=== PATIENT | female | born 1980 | race Caucasian/White ===

== ENCOUNTER 2018-12-15 09:30 | Emergency (ER) | payer OTHER, MEDICAID, SELFPAY ==
[2018-12-15 09:49] VITALS: BP 166/94; PULSE 76; RESP 18; TEMP 36.5; O2SAT 100; BMI 31.5
[2018-12-15 09:56] LABS: Appearance Urine UA CLOUDY; Bilirubin Urine UA NEGATIVE (NEGATIVE); Color Urine UA YELLOW; Glucose Urine UA NEGATIVE (Negative); Ketones Urine UA NEGATIVE (NEGATIVE); Leukocyte Esterase Urine UA 3+ (NEGATIVE); Nitrite Urine UA NEGATIVE (Negative); Occult Blood Urine UA TRACE-INTACT (Negative); Protein Urine UA TRACE (Negative); Urobilinogen Urine UA 0.2 E.U./dL (0.2); pH Urine UA 6.5 (4.5-8.0)
[2018-12-15] MEDS: SODIUM CHLORIDE 0.9% 1,000 ML 1000 ML IV (10:02)
[2018-12-15] MEDS: KETOROLAC 60 MG/2 ML VIAL 30 MG IV (10:02)
--- NOTE | 2018-12-15 10:03 | ED_ITS ---
HPI - Female Genitourinary General Chief complaint: Urogenital-Female Stated complaint: kidney infection/kidney pain Time Seen by Provider: 12/15/18 09:55 Source: patient Mode of arrival: ambulatory Limitations: no limitations History of Present Illness HPI Narrative: Patient is a 38-year-old female who presents with right flank pain. She has a history of kidney stones, this feels like a kidney stone. Pain started 1 hour ago. However she says she had some dysuria yesterday. Denies any fever. She has no lower pain. No nausea or vomiting. Related Data Previous Rx's Medication Instructions Recorded sulfamethoxazole-trimethoprim 1 tab PO BID 7 Days #14 tab 12/15/18 [Bactrim DS] Allergies Allergy/AdvReac Type Severity Reaction Status Date / Time No Known Drug Allergies Allergy Verified 12/15/18 09:49 Review of Systems Review of Systems GENERAL: Denies chills, fatigue, malaise, fever, sweats, travel HEENT: Denies sinus pain, ear pain, sore throat, difficulty swallowing, neck pain RESPIRATORY: Denies dyspnea, cough, wheezing, hemoptysis, sputum. CARDIOVASCULAR: Denies chest pain, palpitations, orthopnea, edema GASTROINTESTINAL: Denies nausea, vomiting, abdominal pain, diarrhea, constipation, melena. : Right flank pain MUSCULOSKELETAL: Denies weakness, joint pain, or bony pain SKIN: No rash, no erythema, no pruritus NEUROLOGIC: Denies weakness, dizziness, headache, numbness, change in speech, confusion PSYCHIATRIC: No concerning psychosocial issues. 12 point review of systems is negative except for those stated above and HPI [facility] Medical History Kidney stones (Acute) Social History Smoking Status: Current every day smoker Social History Smoking Status: Current every day smoker Exam Initial Vital Signs Initial Vital Signs: Vital Signs Temperature 97.7 F 12/15/18 09:49 Pulse Rate 76 12/15/18 09:49 Respiratory Rate 18 12/15/18 09:49 Blood Pressure 166/94 H 12/15/18 09:49 Pulse Oximetry 100 12/15/18 09:49 GENERAL: Alert female appears rocking back and forth HEENT: Head atraumatic,EOMI, pupils reactive, face symmetric, moist mucous membranes CARDIOVASCULAR: Regular rate and rhythm without murmurs, rubs or gallops. RESPIRATORY: Breath sounds equal bilaterally, no wheezes rales or rhonchi. ABDOMEN: Soft, nontender. Normoactive bowel sounds all 4 quadrants. No guarding or rebound. : Right CVA tenderness EXTREMITIES: Normal range of motion, no clubbing or edema. Neurovascularly intact NEUROLOGICAL: Alert and oriented x4.Normal gait and speech. Cranial nerves II through XII grossly intact. SKIN: Warm, dry, no laceration, no petechiae, no rashes or lesions. Course Orders Ordered: ED Orders 12/15/18 09:35 Test Urine Stat Urinalysis and Microscopic Stat Urine Culture Stat 12/15/18 09:47 Complete Blood Count AUTO DIFF Stat Comprehensive Metabolic Panel Stat Lipase Stat Discontinued Medications Sodium Chloride (Normal Saline 0.9%) 1,000 mls @ 1,000 mls/hr IV CONT BRIGHT Last Infusion: 12/15/18 10:55 Dose: 0 mls/hr Admin: 12/15/18 10:02 Dose: 1,000 mls/hr Ketorolac Tromethamine (Toradol) 30 mg IV NOW ONE Stop: 12/15/18 10:00 Last Admin: 12/15/18 10:02 Dose: 30 mg Vital Signs - 8 hr 12/15/18 09:49 12/15/18 11:38 Temperature 97.7 F Pulse Rate 76 81 Respiratory Rate 18 16 Blood Pressure 166/94 H 142/80 H Pulse Oximetry 100 99 MDM - Female Genitourinary Lab Data Attestation: I reviewed the patient's lab results. Result diagrams: 12/15/18 09:47 12/15/18 09:47 Lab Results 12/15/18 12/15/18 12/15/18 Range/Units 09:35 09:35 09:47 WBC 12.2 H (4.5-11.0) X10^3/uL RBC 5.05 (4.0-5.2) X10^6/uL Hgb 14.2 (12.0-16.0) g/dL Hct 43.6 (36-46) % MCV 86.4 (80-100) fL MCH 28.2 (26-34) PG MCHC 32.7 (30-36) % RDW 15.0 H (11.6-14.8) % Plt Count 289 (150-400) X10^3/uL Neut % (Auto) 65.0 (50-75) % Lymph % (Auto) 25.7 (25-40) % [place] % (Auto) 6.5 (3-14) % Eos % (Auto) 2.3 (2-4) % Baso % (Auto) 0.5 (0-2) % Neut # (Auto) 7900 H (6121-9196) /uL Lymph # (Auto) 3100 (4610-8638) /uL [place] # (Auto) 800 (0-900) /uL Eos # (Auto) 300 (0-450) /uL Baso # (Auto) 100 (0-100) /uL Sodium (137-145) mmol/L Potassium (3.4-5.1) mmol/L Chloride (98-107) mmol/L Carbon Dioxide (22-32) mmol/L BUN (7-17) mg/dL Creatinine (0.52-1.04) mg/dL Estimated GFR (>60) mL/min BUN/Creatinine Ratio (6-22) Glucose (70-100) mg/dL Calcium (8.4-10.2) mg/dL Total Bilirubin (0.2-1.3) mg/dL AST (14-36) IU/L ALT (9-52) IU/L Alkaline Phosphatase (38-126) U/L Total Protein (6.3-8.2) g/dL Albumin (3.5-5.0) g/dL Globulin (1.7-4.1) g/dL Albumin/Globulin Ratio (1.0-2.8) Lipase (23-300) U/L Urine Color Yellow Urine Appearance Cloudy Urine pH 6.5 (4.5-8.0) Ur Specific [place] 1.020 (1.000-1.035) Urine Protein Trace H (Negative) Urine Glucose (UA) Negative (Negative) g/dL Urine Ketones Negative (NEGATIVE) Urine Occult Blood Trace-intact (Negative) Urine Nitrate Negative (Negative) Urine Bilirubin Negative (NEGATIVE) Urine Urobilinogen 0.2 (0.2) E.U./dL Ur Leukocyte Esterase 3+ H (NEGATIVE) Urine RBC 1-5/hpf (0-5/HPF) Urine WBC >100/hpf H (0-5/HPF) Ur Squamous Epith Cells 1-5 /hpf (0-5/HPF) Urine Bacteria Many (>30) H (None) Ur Culture Indicated? Specimen cultured Urine Test Negative (Negative) 12/15/18 Range/Units 09:47 WBC (4.5-11.0) X10^3/uL RBC (4.0-5.2) X10^6/uL Hgb (12.0-16.0) g/dL Hct (36-46) % MCV (80-100) fL MCH (26-34) PG MCHC (30-36) % RDW (11.6-14.8) % Plt Count (150-400) X10^3/uL Neut % (Auto) (50-75) % Lymph % (Auto) (25-40) % [place] % (Auto) (3-14) % Eos % (Auto) (2-4) % Baso % (Auto) (0-2) % Neut # (Auto) (6217-2664) /uL Lymph # (Auto) (5700-9343) /uL [place] # (Auto) (0-900) /uL Eos # (Auto) (0-450) /uL Baso # (Auto) (0-100) /uL Sodium 138 (137-145) mmol/L Potassium 4.0 (3.4-5.1) mmol/L Chloride 106 (98-107) mmol/L Carbon Dioxide 23 (22-32) mmol/L BUN 16 (7-17) mg/dL Creatinine 1.00 (0.52-1.04) mg/dL Estimated GFR > 60.0 (>60) mL/min BUN/Creatinine Ratio 16.0 (6-22) Glucose 89 (70-100) mg/dL Calcium 10.2 (8.4-10.2) mg/dL Total Bilirubin 0.4 (0.2-1.3) mg/dL AST 19 (14-36) IU/L ALT 22 (9-52) IU/L Alkaline Phosphatase 81 (38-126) U/L Total Protein 7.4 (6.3-8.2) g/dL Albumin 4.3 (3.5-5.0) g/dL Globulin 3.1 (1.7-4.1) g/dL Albumin/Globulin Ratio 1.4 (1.0-2.8) Lipase 55 (23-300) U/L Urine Color Urine Appearance Urine pH (4.5-8.0) Ur Specific [place] (1.000-1.035) Urine Protein (Negative) Urine Glucose (UA) (Negative) g/dL Urine Ketones (NEGATIVE) Urine Occult Blood (Negative) Urine Nitrate (Negative) Urine Bilirubin (NEGATIVE) Urine Urobilinogen (0.2) E.U./dL Ur Leukocyte Esterase (NEGATIVE) Urine RBC (0-5/HPF) Urine WBC (0-5/HPF) Ur Squamous Epith Cells (0-5/HPF) Urine Bacteria (None) Ur Culture Indicated? Urine Test (Negative) MDM Narrative Medical decision making narrative: 11:15 a.m.. Patient is resting comfortably overall Toradol has helped significant amount. Abdomen is reexamined remain soft nontender especially in right lower quadrant. At this time patient has history of kidney stones she has UTI, with probable pyelonephritis. At this time I did discuss CT with patient however do not think she warrants a CT at this time. History of kidney stones and infection, this feels similar. Will put on antibiotics. She understands when to return to the and that she may need a CT scan. Discharge Plan Departure Patient Disposition: Home Clinical Impression: Pyelonephritis Discharge Date/Time: 12/15/18 11:39 Interventions: ED Discharge Assessment Last Done: 12/15/18 11:38 Activity Restrictions/Additional Instructions: *You have been diagnosed with pyelonephritis *What to do: Kidney infection increase fluid intake fever control *Continue to take medications as directed Motrin 800 mg every 8 hours as needed for pain and fever Bactrim 1 tablet twice a day for 7 days *Follow up with your primary care provider in 2-3 days *Return to ER if you should have inability tolerate antibiotic, increasing pain, persistent fever or any new, worsening or concerning symptoms Prescriptions: New sulfamethoxazole-trimethoprim [Bactrim DS] 800-160 mg tablet 1 tab PO BID 7 Days Qty: 14 RF: 0
[2018-12-15 10:10] LABS: Bacteria Urine Many (>30); Culture Indicated Urine Specimen Cultured; RBC Urine 1-5/HPF (0-5/HPF); Squamous Epithelial Cell Urine 1-5 /HPF (0-5/HPF); WBC Urine >100/HPF (0-5/HPF)
[2018-12-15 10:13] LABS: Add Manual Diff / Slide Review NO; Basophils Absolute Auto 100 /uL (0-100); Basophils Percent Auto 0.5 % (0-2); Eosinophils Absolute Auto 300 /uL (0-450); Eosinophils Percent Auto 2.3 % (2-4); Hematocrit 43.6 % (36-46); Hemoglobin 14.2 g/dL (12.0-16.0); Lymphocytes Absolute Auto 3100 /uL (1100-4500); Lymphocytes Percent Auto 25.7 % (25-40); Mean Corpuscular HGB Conc 32.7 % (30-36); Mean Corpuscular Hemoglobin 28.2 PG (26-34); Mean Corpuscular Volume 86.4 fL (80-100); Monocytes Absolute Auto 800 /uL (0-900); Monocytes Percent Auto 6.5 % (3-14); Neutrophils Absolute Auto 7900 /uL (1500-7000); Platelet Count 289 X10^3/uL (150-400); Red Blood Cell Count 5.05 X10^6/uL (4.0-5.2); White Blood Cell Count 12.2 X10^3/uL (4.5-11.0)
[2018-12-15 10:14] LABS: Alanine Aminotransferase 22 IU/L (9-52); Albumin 4.3 g/dL (3.5-5.0); Albumin Globulin Ratio 1.4 (1.0-2.8); Alkaline Phosphatase 81 U/L (38-126); Aspartate Aminotransferase 19 IU/L (14-36); Bilirubin Total 0.4 mg/dL (0.2-1.3); Blood Urea Nitrogen 16 mg/dL (7-17); Calcium 10.2 mg/dL (8.4-10.2); Carbon Dioxide 23 mmol/L (22-32); Chloride 106 mmol/L (98-107); Estimated Glomerular Filt Rate > 60.0 mL/min (>60); Globulin 3.1 g/dL (1.7-4.1); Glucose 89 mg/dL (70-100); HEMOLYSIS < 15 (0-50); Lipase 55 U/L (23-300); Sodium 138 mmol/L (137-145); Total Protein 7.4 g/dL (6.3-8.2)
[2018-12-15 11:23] LABS: Pregnancy Test Urine Negative (Negative)
[2018-12-15 11:38] VITALS: BP 142/80; PULSE 81; RESP 16; O2SAT 99
== END 2018-12-15 11:39 | disposition home or self-care (01) ==
PROVIDERS: Emergency Provider Emergency Medicine
DX: N12 Tubulo-interstitial nephritis, not specified as acute or chronic (principal)
CPT/HCPCS: 36591; 80053; 81001; 81025; 83690; 85025; 87077; 87086; 87147; 87186; 96361; 96374; 99283; 99284; J1885

== ENCOUNTER 2019-05-11 07:31 | Emergency (ER) | payer OTHER, MEDICAID, SELFPAY ==
[2019-05-11 07:32] VITALS: BP 192/113; PULSE 70; RESP 18; TEMP 36.4; O2SAT 98
--- NOTE | 2019-05-11 08:06 | ED_ITS ---
HPI - Abdominal Pain <Cheli Valencia MD - Last Filed: 05/11/19 20:06> General Chief Complaint: Abdominal Pain Stated Complaint: severe right upper quad pain today Time Seen by Provider: 05/11/19 07:42 Source: patient Mode of arrival: Ambulatory Limitations: no limitations History of Present Illness HPI narrative: Patient comes emergency department complaining of severe right upper quadrant pain for the past few hours. She states it awakened her from sleep. Patient denies nausea vomiting. No fevers. She has had a production some clear mucus. She denies any dysuria. No hematuria. She states she has no history of gallbladder issues that she knows of. She states she ate pasta was soft for her most recent meal which was last night. She does have a history of kidney stones, but states this feels different. No back pain. patient denies blood in her stools. No diarrhea. Patient is not known to be . No other complaints at this time. Related Data Home Medications Medication Instructions Recorded Confirmed No Known Home Medications 05/11/19 05/11/19 Allergies Allergy/AdvReac Type Severity Reaction Status Date / Time No Known Drug Allergies Allergy Verified 05/11/19 08:22 Review of Systems <Cheli Valencia MD - Last Filed: 05/11/19 20:06> Constitutional Constitutional: Denies chills, Denies fatigue, Denies fever(s), Denies frequent falls, Denies lethargy and Denies weakness Eyes Eyes: Denies change in vision, Denies eye discharge, Denies irritation and Denies loss of vision ENT Ears, Nose, Mouth, and Throat: Denies change in voice, Denies dizziness, Denies neck pain, Denies sore throat and Denies throat swelling Cardiovascular Cardiovascular: Denies chest pain, Denies irregular heart rhythm, Denies lightheadedness, Denies palpitations, Denies dyspnea, Denies dyspnea on exertion and Denies orthopnea Respiratory Respiratory: Denies cough, Denies dyspnea, Denies dyspnea on exertion and Denies wheezing Gastrointestinal Gastrointestinal: Reports abdominal pain, Denies change in bowel habits, Denies diarrhea, Denies nausea and Denies vomiting Genitourinary Genitourinary: Denies hematuria, Denies flank pain, Denies urinary incontinence and Denies urinary urgency Musculoskeletal Musculoskeletal: Denies back pain, Denies muscle weakness, Denies neck pain, Denies numbness and Denies tingling Integumentary/Breasts Skin/Breast: Denies pruritus, Denies erythema, Denies rash and Denies wounds Neurologic Neurologic: Denies behavioral changes, Denies confusion, Denies dizziness, Denies frequent falls, Denies loss of vision, Denies numbness, Denies tingling and Denies weakness Psychiatric Psychiatric: Denies anxiety, Denies behavioral changes, Denies confusion, Denies depression, Denies homicidal ideation and Denies suicidal ideation Endocrine Endocrine: Denies fatigue, Denies flushing and Denies palpitations Hematologic/Lymphatic Hematologic/Lymphatic: Denies easy bruising Allergic/Immunologic Allergic/Immunologic: Denies urticaria, Denies throat swelling and Denies wheezing Patient History <Cheli Valencia MD - Last Filed: 05/11/19 20:06> Medical History (Updated 05/11/19 @ 09:57 by Cheli Valencia MD) Kidney stones (Acute) Surgical History No pertinent past surgical history (Acute) Social History Smoking Status: Current every day smoker Social History Smoking Status: Current every day smoker Substance Use Type: does not use Exam <Cheli Valencia MD - Last Filed: 05/11/19 20:06> Initial Vital Signs Initial Vital Signs: Vital Signs Temperature 97.6 F 05/11/19 07:32 Pulse Rate 70 05/11/19 07:32 Respiratory Rate 18 05/11/19 07:32 Blood Pressure 192/113 H 05/11/19 07:32 Pulse Oximetry 98 05/11/19 07:32 Const General: cooperative and well developed Nutritional Appearance: well nourished Orientation: alert, awake, oriented x3 and not confused Other: Patient is writhing on the bed, and appears uncomfortable. Otherwise no apparent distress. [facility] Head: normocephalic and atraumatic Ears: external ears normal Nose: external nose normal and No nasal discharge Face and sinus: face symmetric and No dry mucous membranes Mouth: oral mucosae normal and moist mucous membranes Teeth and gingiva: dentition normal Eyes General: appearance normal, both eyes and all related structures Eyelids: eyelids normal Conjunctivae: conjunctivae normal Sclera: sclerae normal Pupils: PERRL EOM: EOM intact bilaterally Neck Neck: normal visual inspection, trachea midline, No lymphadenopathy, No midline deformity and No JVD Lymphatic: No lymphedema Chest Chest: normal inspection of the chest Resp Effort & Inspection: normal respiratory effort, able to speak in complete sentences, no respiratory distress and no use of accessory muscles Auscultation: clear to auscultation bilaterally, no rales, no rhonchi and no wheezes Cardio Rate: regular rate Rhythm: regular rhythm Heart Sounds: no click, no gallops, no murmurs and no rubs Pulses: normal peripheral pulses GI Inspection: non-distended Palpation: soft, no hepatosplenomegaly, No guarding, No pulsatile mass and No tender Auscultation: normal bowel sounds Back/Spine/Pelvis Back: No CVA tenderness Cervical Spine: cervical ROM normal and No pain with cervical ROM Thoracic/Lumbar Spine: thoracic and lumbar spine normal to inspection Skin General: no rashes or lesions noted, No jaundice and No petechiae Neuro General: alert, oriented x3, gait normal and no focal motor deficits Speech: speech normal Extrem General: full ROM, no clubbing, cyanosis or edema, no pedal edema and no calf tenderness Psych Appearance: well kempt Mental Status: mental status grossly normal Attitude: cooperative Thought Content: normal and suicidality Judgment: judgment good <Darek Anderson MD - Last Filed: 05/11/19 22:43> Initial Vital Signs Initial Vital Signs: Vital Signs Temperature 97.6 F 05/11/19 07:32 Pulse Rate 70 05/11/19 07:32 Respiratory Rate 18 05/11/19 07:32 Blood Pressure 192/113 H 05/11/19 07:32 Pulse Oximetry 98 05/11/19 07:32 Course <Cheli Valencia MD - Last Filed: 05/11/19 20:06> Course Course Narrative: Patient was treated symptomatically with IV fluids and analgesia. She was worked laboratory studies, EKG, chest x-ray, and right upper quadrant ultrasound. Workup demonstrated elevated lipase and evidence of cholecystitis and cholelithiasis without evidence of choledocholithiasis on the ultrasound. I discussed with the patient and her the findings, and the need for admission and most likely, removal of the gallbladder. The patient was somewhat drowsy, but both and patient seemed agreeable. I spoke with Dr. jatin chin, who agreed to admit the patient to his surgical service. However, when he came down to see the patient in the emergency department, the patient told him she did not want surgery. Dr. Anderson spoke with me about this and recommended that the patient then come into the hospital for IV antibiotics and observation. He stated he had discussed this with the patient and that she was agreeable. I did discuss the patient's case with Dr. Mcrae, who agreed to admit the patient to her service. Antibiotics have been ordered for the patient, but before these could be hung, the patient became irate, stating that she wanted to go home right now. I went in with nursing staff and spoke with her regarding the fact that she has cholecystitis and gallstones, as well as pancreatitis, and that it is in her best interest to stay and at very least get antibiotics and be observed. We have already discussed that surgery would be the best and most definitive treatment for her but she should at least get the antibiotics and undergo medical observation to be sure that her gallbladder does not become worse and end up rupturing. I have explained to her that should this occur, the patient could become septic and I. The patient was irate and argum entative during the entire discussion, rolling her eyes and looking at her and trying to talk over me and demand that her IV be taken out immediately. The patient stated she would rather go home and discuss the situation with her family and her ?82-year-old grandmother?. She was advised th at she would need to sign out against medical advice. I did fill out Against Medical Advice forms and the patient ultimately left without antibiotic treatment in the emergency department. She has been advised that she may return to the emergency department at any time, should she decide to do so. Orders Ordered: Discontinued Medications Hydromorphone HCl (Dilaudid) 1 mg IV NOW ONE Stop: 05/11/19 08:07 Last Admin: 05/11/19 08:48 Dose: Not Given Documented by: VIANCAEL Sodium Chloride (Normal Saline 0.9%) 1,000 mls @ 1,000 mls/hr IV BOLUS ONE Stop: 05/11/19 08:43 Last Admin: 05/11/19 08:19 Dose: 1,000 mls/hr Documented by: [email or web address] Dextrose/Sodium Chloride (Dextrose 5%-0.9% Ns) 1,000 mls @ 100 mls/hr IV CONT BRIGHT Piperacillin/Tazobactam/Dextrose (Zosyn) 3.375 gm in 50 mls @ 100 mls/hr IV Q8H BRIGHT Ketorolac Tromethamine (Toradol) 30 mg IV NOW ONE Stop: 05/11/19 08:07 Last Admin: 05/11/19 08:20 Dose: 30 mg Documented by: [email or web address] Ondansetron HCl (Zofran) 4 mg IV NOW ONE Stop: 05/11/19 07:45 Last Admin: 05/11/19 08:19 Dose: 4 mg Documented by: [email or web address] Ondansetron HCl (Zofran) 4 mg IV Q8HR PRN PRN Reason: Nausea And Vomiting Oxycodone HCl (Percolone) 5 mg PO Q6HR PRN PRN Reason: Pain, Moderate (4-6) Vital Signs Vital signs: Vital Signs - 8 hr 05/11/19 07:32 05/11/19 09:08 Temperature 97.6 F Pulse Rate 70 72 Respiratory Rate 18 16 Blood Pressure 192/113 H Blood Pressure [Right Arm] 160/86 H Pulse Oximetry 98 100 <Darek Anderson MD - Last Filed: 05/11/19 22:43> Orders Ordered: Discontinued Medications Hydromorphone HCl (Dilaudid) 1 mg IV NOW ONE Stop: 05/11/19 08:07 Last Admin: 05/11/19 08:48 Dose: Not Given Documented by: [email or web address] Sodium Chloride (Normal Saline 0.9%) 1,000 mls @ 1,000 mls/hr IV BOLUS ONE Stop: 05/11/19 08:43 Last Admin: 05/11/19 08:19 Dose: 1,000 mls/hr Documented by: [email or web address] Dextrose/Sodium Chloride (Dextrose 5%-0.9% Ns) 1,000 mls @ 100 mls/hr IV CONT BRIGHT Piperacillin/Tazobactam/Dextrose (Zosyn) 3.375 gm in 50 mls @ 100 mls/hr IV Q8H BRIGHT Ketorolac Tromethamine (Toradol) 30 mg IV NOW ONE Stop: 05/11/19 08:07 Last Admin: 05/11/19 08:20 Dose: 30 mg Documented by: [email or web address] Ondansetron HCl (Zofran) 4 mg IV NOW ONE Stop: 05/11/19 07:45 Last Admin: 05/11/19 08:19 Dose: 4 mg Documented by: [email or web address] Ondansetron HCl (Zofran) 4 mg IV Q8HR PRN PRN Reason: Nausea And Vomiting Oxycodone HCl (Percolone) 5 mg PO Q6HR PRN PRN Reason: Pain, Moderate (4-6) Vital Signs Vital signs: Vital Signs - 8 hr 05/11/19 07:32 05/11/19 09:08 Temperature 97.6 F Pulse Rate 70 72 Respiratory Rate 18 16 Blood Pressure 192/113 H Blood Pressure [Right Arm] 160/86 H Pulse Oximetry 98 100 MDM - Abdominal Pain <Cheli Valencia MD - Last Filed: 05/11/19 20:06> Medical Records Attestation: I reviewed the patient's medical records. Lab Data Attestation: I reviewed the patient's lab results. Result diagrams: 05/11/19 08:00 05/11/19 08:00 Labs: Lab Results 05/11/19 05/11/19 05/11/19 Range/Units 08:00 08:00 08:00 WBC 7.3 (4.5-11.0) X10^3/uL RBC 5.05 (4.0-5.2) X10^6/uL Hgb 14.4 (12.0-16.0) g/dL Hct 42.7 (36-46) % MCV 84.6 (80-100) fL MCH 28.5 (26-34) PG MCHC 33.7 (30-36) % RDW 14.6 (11.6-14.8) % Plt Count 237 (150-400) X10^3/uL Neut % (Auto) 50.9 (50-75) % Lymph % (Auto) 36.3 (25-40) % [place] % (Auto) 8.4 (3-14) % Eos % (Auto) 3.9 (2-4) % Baso % (Auto) 0.5 (0-2) % Neut # (Auto) 3700 (0918-1560) /uL Lymph # (Auto) 2700 (8892-9797) /uL [place] # (Auto) 600 (0-900) /uL Eos # (Auto) 300 (0-450) /uL Baso # (Auto) 0 (0-100) /uL Sodium 139 (137-145) mmol/L Potassium 4.2 (3.4-5.1) mmol/L Chloride 107 (98-107) mmol/L Carbon Dioxide 24 (22-32) mmol/L BUN 20 H (7-17) mg/dL Creatinine 1.00 (0.52-1.04) mg/dL Estimated GFR > 60.0 (>60) mL/min BUN/Creatinine Ratio 20.0 (6-22) Glucose 114 H (70-100) mg/dL Calcium 10.4 H (8.4-10.2) mg/dL Total Bilirubin 0.4 (0.2-1.3) mg/dL AST 26 (14-36) IU/L ALT 25 (9-52) IU/L Alkaline Phosphatase 71 (38-126) U/L Total Protein 7.4 (6.3-8.2) g/dL Albumin 4.1 (3.5-5.0) g/dL Globulin 3.3 (1.7-4.1) g/dL Albumin/Globulin Ratio 1.2 (1.0-2.8) Lipase 572 H (23-300) U/L Serum , Qual Negative (Negative) Imaging Data US - abdomen: Radiologist's impression: PROCEDURE: US ABDOMEN LIMITED INDICATIONS: SEVERE RIGHT UPPER QUADRANT PAIN, TENDERNESS TECHNIQUE: Real-time focused scanning was performed of the abdomen, with image documentation. COMPARISON: [facility], CT, KIDNEY/ URETER/BLADDER, 12/31/2015, 3:42. FINDINGS: The liver demonstrates normal size. The liver demonstrates generalized increased echogenicity. This decreases ultrasound sensitivity for detection of hepatic masses. Heart the gallbladder wall is thickened, measuring 4 mm at the gallbladder neck. There is apparent thickening measuring greater than 1 cm at the gallbladder neck, yet this is likely artifactual. The gallbladder appears distended measuring 12.5 cm. There is are several shadowing, layering gallstones, including a large gallstone measuring 2 x 1 cm. No specific pericholecystic fluid is seen. The sonographic Gusman sign is negative. The common bile duct measures at the upper limits of normal at 7 mm. The visualized pancreas is unremarkable. IMPRESSION: Gallstones and gallbladder wall thickening can be seen, without additional definite sonographic signs of cholecystitis. Please correlate with physical examination findings, patient presentation, and laboratory values. The common bile duct measures at the upper limits of normal at 7 mm. The liver demonstrates increased echogenicity. This finding is nonspecific, yet it is most commonly attributed to fatty infiltration. Dictated by: Goyo Cortés M.D. on 05/11/2019 at 8:16 Approved by: Goyo Cortés M.D. on 05/11/2019 at 8:19 Chest x-ray: Radiologist's impression: PROCEDURE: XR CHEST 2V INDICATIONS: R rib/lower chest pain with cough TECHNIQUE: 2 views of the chest were acquired. COMPARISON: None. FINDINGS: Surgical changes and devices: None. Lungs and pleura: An incomplete inspiratory result is noted, causing a crowded appearance to the lung markings. No pneumothorax or significant pleural effusions are seen. Mild, streaky opacities are seen at the lung bases. Mediastinum: Mediastinal contours are normal. Heart size is normal. Bones and chest wall: No suspicious bony abnormalities. No displaced fractures can be seen. Age-appropriate bony degenerative changes are seen. Soft tissues appear unremarkable. IMPRESSION: Likely atelectasis is seen at the lung bases. Differential diagnosis includes minimal infiltrate, however. No focal rib abnormality is seen. Dictated by: Goyo Cortés M.D. on 05/11/2019 at 8:14 Approved by: Goyo Cortés M.D. on 05/11/2019 at 8:15 <Darek Anderson MD - Last Filed: 05/11/19 22:43> Lab Data Labs: Lab Results 05/11/19 05/11/19 05/11/19 Range/Units 08:00 08:00 08:00 WBC 7.3 (4.5-11.0) X10^3/uL RBC 5.05 (4.0-5.2) X10^6/uL Hgb 14.4 (12.0-16.0) g/dL Hct 42.7 (36-46) % MCV 84.6 (80-100) fL MCH 28.5 (26-34) PG MCHC 33.7 (30-36) % RDW 14.6 (11.6-14.8) % Plt Count 237 (150-400) X10^3/uL Neut % (Auto) 50.9 (50-75) % Lymph % (Auto) 36.3 (25-40) % [place] % (Auto) 8.4 (3-14) % Eos % (Auto) 3.9 (2-4) % Baso % (Auto) 0.5 (0-2) % Neut # (Auto) 3700 (4754-3976) /uL Lymph # (Auto) 2700 (5436-8694) /uL [place] # (Auto) 600 (0-900) /uL Eos # (Auto) 300 (0-450) /uL Baso # (Auto) 0 (0-100) /uL Sodium 139 (137-145) mmol/L Potassium 4.2 (3.4-5.1) mmol/L Chloride 107 (98-107) mmol/L Carbon Dioxide 24 (22-32) mmol/L BUN 20 H (7-17) mg/dL Creatinine 1.00 (0.52-1.04) mg/dL Estimated GFR > 60.0 (>60) mL/min BUN/Creatinine Ratio 20.0 (6-22) Glucose 114 H (70-100) mg/dL Calcium 10.4 H (8.4-10.2) mg/dL Total Bilirubin 0.4 (0.2-1.3) mg/dL AST 26 (14-36) IU/L ALT 25 (9-52) IU/L Alkaline Phosphatase 71 (38-126) U/L Total Protein 7.4 (6.3-8.2) g/dL Albumin 4.1 (3.5-5.0) g/dL Globulin 3.3 (1.7-4.1) g/dL Albumin/Globulin Ratio 1.2 (1.0-2.8) Lipase 572 H (23-300) U/L Serum , Qual Negative (Negative) Discharge Plan Departure Patient Disposition: Left Against Medical Advice Clinical Impression: Pancreatitis, Cholecystitis, acute with cholelithiasis Discharge Date/Time: 05/11/19 12:21 Instructions: DI for Pancreatitis, DI for Cholecystitis Activity Restrictions/Additional Instructions: You have inflammation of your gallbladder as well as your pancreas, and you also gallstones. This condition is very serious and the best treatment is antibiotics and removal of the gallbladder by surgery. This has been explained to, and you understand that by declining treatment and leaving the emergency d epartment, your risk of rupture of your gallbladder and subsequent sepsis and . You have chosen to leave the emergency department without completing appropriate treatment in the hospital. You may return to the emergency department any time, should you decide to forego treatment. Prescriptions: No Action No Known Home Medications RF: 0 Stand Alone Forms: Against Medical Advice
[2019-05-11 08:08] LABS: Add Manual Diff / Slide Review NO; Basophils Absolute Auto 0 /uL (0-100); Basophils Percent Auto 0.5 % (0-2); Eosinophils Absolute Auto 300 /uL (0-450); Eosinophils Percent Auto 3.9 % (2-4); Hematocrit 42.7 % (36-46); Hemoglobin 14.4 g/dL (12.0-16.0); Lymphocytes Absolute Auto 2700 /uL (1100-4500); Lymphocytes Percent Auto 36.3 % (25-40); Mean Corpuscular HGB Conc 33.7 % (30-36); Mean Corpuscular Hemoglobin 28.5 PG (26-34); Mean Corpuscular Volume 84.6 fL (80-100); Monocytes Absolute Auto 600 /uL (0-900); Monocytes Percent Auto 8.4 % (3-14); Neutrophils Absolute Auto 3700 /uL (1500-7000); Neutrophils Percent Auto 50.9 % (50-75); Platelet Count 237 X10^3/uL (150-400); Red Blood Cell Count 5.05 X10^6/uL (4.0-5.2); Red Cell Distribution Width 14.6 % (11.6-14.8); White Blood Cell Count 7.3 X10^3/uL (4.5-11.0)
--- NOTE | 2019-05-11 08:10 | DI.RAD.S_ITS ---
PROCEDURE: XR CHEST 2V INDICATIONS: R rib/lower chest pain with cough TECHNIQUE: 2 views of the chest were acquired. COMPARISON: None. FINDINGS: Surgical changes and devices: None. Lungs and pleura: An incomplete inspiratory result is noted, causing a crowded appearance to the lung markings. No pneumothorax or significant pleural effusions are seen. Mild, streaky opacities are seen at the lung bases. Mediastinum: Mediastinal contours are normal. Heart size is normal. Bones and chest wall: No suspicious bony abnormalities. No displaced fractures can be seen. Age-appropriate bony degenerative changes are seen. Soft tissues appear unremarkable. IMPRESSION: Likely atelectasis is seen at the lung bases. Differential diagnosis includes minimal infiltrate, however. No focal rib abnormality is seen. Dictated by: Goyo Cortés M.D. on 05/11/2019 at 8:14 Approved by: Goyo Cortés M.D. on 05/11/2019 at 8:15
[2019-05-11 08:18] LABS: Alanine Aminotransferase 25 IU/L (9-52); Albumin 4.1 g/dL (3.5-5.0); Albumin Globulin Ratio 1.2 (1.0-2.8); Alkaline Phosphatase 71 U/L (38-126); Aspartate Aminotransferase 26 IU/L (14-36); Bilirubin Total 0.4 mg/dL (0.2-1.3); Blood Urea Nitrogen 20 mg/dL (7-17); Calcium 10.4 mg/dL (8.4-10.2); Carbon Dioxide 24 mmol/L (22-32); Chloride 107 mmol/L (98-107); Estimated Glomerular Filt Rate > 60.0 mL/min (>60); Globulin 3.3 g/dL (1.7-4.1); Glucose 114 mg/dL (70-100); HEMOLYSIS < 15 (0-50); Lipase 572 U/L (23-300); Potassium 4.2 mmol/L (3.4-5.1); Sodium 139 mmol/L (137-145); Total Protein 7.4 g/dL (6.3-8.2)
[2019-05-11] MEDS: ONDANSETRON 4 MG/2 ML INJ IV (08:19)
[2019-05-11] MEDS: SODIUM CHLORIDE 0.9% 1,000 ML 1000 ML IV (08:19)
[2019-05-11] MEDS: KETOROLAC 60 MG/2 ML VIAL 30 MG IV (08:20)
[2019-05-11 09:08] VITALS: BP 160/86; PULSE 72; RESP 16; O2SAT 100
[2019-05-11 09:55] VITALS: BP 135/86; PULSE 77; RESP 18; O2SAT 99
[2019-05-11 10:11] LABS: Pregnancy Test Serum,Qual Negative (Negative)
[2019-05-11 10:38] VITALS: BP 135/86; PULSE 64; RESP 16; O2SAT 99
[2019-05-11 11:29] VITALS: BP 142/94; PULSE 81; RESP 24; O2SAT 98
--- NOTE | 2019-05-11 11:29 | PC.NURSE ---
MANAGER MEDICAL AFFAIRS/RALPH Note: while I was doing vitals on the Patient, her significant other walked in the room. He made some rude comments wake up Razia I want to go home. he even shook her right shoulder and stated you need to talk to the doctor or else they will admit you. I asked if he could not speak to the patient that way. He continued and the patient did tell him do not talk to me that way. the patient asked me if I could get the doctor or nurse because I want to leave. I Notified the RN and Doctor.
--- NOTE | 2019-06-09 17:19 | PC.NURSE ---
0919 hours NS 1L bolus infused.
== END 2019-05-11 12:21 | disposition left against medical advice (07) ==
LOC: ED 09:57 → AC 11:09
PROVIDERS: Emergency Provider Emergency Medicine
DX: K85.90 Acute pancreatitis without necrosis or infection, unspecified (principal); K80.00 Calculus of gallbladder with acute cholecystitis without obstruction
CPT/HCPCS: 36415; 71046; 76705; 80053; 83690; 84703; 85025; 93005; 96361; 96374; 96375; 99283; 99285; J1885; J2405

== ENCOUNTER 2019-06-20 09:07 | Emergency (ER) | payer OTHER, MEDICAID, SELFPAY ==
[2019-06-20 09:15] VITALS: BP 183/101; PULSE 96; RESP 18; TEMP 36.4; O2SAT 100; BMI 32.3
--- NOTE | 2019-06-20 09:24 | DI.US.S_ITS ---
PROCEDURE: US ABDOMEN COMPLETE INDICATIONS: RUQ PAIN, HISTORY GALLSTONES AND KIDNEY STONES TECHNIQUE: Real-time scanning was performed of the abdominal and retroperitoneal organs, with image documentation. COMPARISON: None. FINDINGS: Liver: Liver is normal in size and homogeneous in echotexture, hyperechoic consistent with fatty infiltration. Gallbladder: At least 2 gallstones are present within the gallbladder lumen, and more may be present partially visualized. The gallbladder wall is abnormally thickened at up to 6 mm, and there is no definite tenderness on sonographic palpation the patient is receiving pain medication. Biliary ducts: Intrahepatic bile ducts are non-dilated. Extrahepatic bile duct caliber measures 12.0 mm. Normal is 6-7 mm or less in diameter, or 10 mm or less post-cholecystectomy. Pancreas: Visualized portions of the pancreas are sonographically normal. Spleen: Spleen is normal in size and homogeneous in echotexture. Kidneys: Kidneys are normal in size and echotexture. Right kidney measures 11.3 cm long; left kidney measures 13.4 cm long. No hydronephrosis or right-sided nephrolithiasis. A left-sided 7 mm nonobstructive collecting system calculus is seen and there is right-sided hydronephrosis with a possible distal ureteral stone No solid masses. Aorta: Visualized aorta is normal in caliber at less than 3 cm. Iliacs: Proximal common iliac arteries are normal in caliber at less than 2.5 cm. IVC: Intrahepatic inferior vena cava is patent. Miscellaneous: No free abdominal fluid. There is a large left-sided ovarian cyst measuring up to 11.6 x 8.6 x 9.0 cm. Mural nodularity is associated. IMPRESSION: 1. Fatty infiltration throughout the liver. 2. Gallstones within the gallbladder lumen, abnormal biliary distention to up to 12 mm, consider and MR cholangiogram for distal common duct stone or mass. However, no intrahepatic biliary distention is found. 3. Hydronephrosis right kidney, possibly associated with distal ureteral stone. CT KUB may be warranted at this time. 7 mm nonobstructive renal collecting system calculus on the left incidentally noted. 4. Large mildly complex left ovarian cyst measuring up to 11.6 cm. Dedicated pelvic ultrasound is recommended with both transabdominal and transvaginal scanning. Dictated by: Luisito Sanz M.D. on 06/20/2019 at 11:02 Approved by: Luisito Sanz M.D. on 06/20/2019 at 11:06
--- NOTE | 2019-06-20 09:27 | ED.ABDPAIN ---
HPI - Abdominal Pain General Chief Complaint: Abdominal Pain Stated Complaint: kidney/gallbladder pain Time Seen by Provider: 06/20/19 09:11 Source: patient Mode of arrival: Ambulatory History of Present Illness HPI narrative: Patient is a 38-year-old female with history of gallstones and kidney stones she has actually seen evaluated here 05/11/2019 where she had signs of acute cholecystitis it was recommended she stay in the hospital for IV antibiotics and close observation however she left against medical advice. Today she wakes up with all right flank pain which she thinks is a kidney stone it does not radiate down to her groin but she does have right upper quadrant pain. She has no fevers sweats or chills. She denies any nausea no vomiting. She feels like this time it is kidney stone, although she continues to have right upper quadrant pain as well. MD complaint: abdominal pain and flank pain Onset (ago): hour(s) Pain Consistency: intermittent Location: RUQ and R flank Severity: moderate Quality: sharp Radiation: none Migration to: no migration Relieving factors: nothing Exacerbating factors: nothing Related Data Previous Rx's Medication Instructions Recorded hydrocodone-acetaminophen 1 tab PO Q6H PRN #10 tab 06/20/19 ondansetron 4 mg PO Q8H PRN #10 tab 06/20/19 sulfamethoxazole-trimethoprim 1 tab PO BID 7 Days #14 tab 06/20/19 [Bactrim DS] tamsulosin [Flomax] 0.4 mg PO DAILY #30 cap 06/20/19 Allergies Allergy/AdvReac Type Severity Reaction Status Date / Time No Known Drug Allergies Allergy Verified 06/20/19 09:15 Review of Systems Review of Systems Narrative: GENERAL: Denies chills, fatigue, malaise, fever, sweats, travel HEENT: Denies sinus pain, ear pain, sore throat, difficulty swallowing, neck pain RESPIRATORY: Denies dyspnea, cough, wheezing, hemoptysis, sputum. CARDIOVASCULAR: Denies chest pain, palpitations, orthopnea, edema GASTROINTESTINAL: + right upper quadrant pain, see HPI Denies nausea, vomiting, abdominal pain, diarrhea, constipation, melena. : + right flank pain Denies dysuria, frequency, incontinence, urinary retention MUSCULOSKELETAL: Denies weakness, joint pain, or bony pain SKIN: No rash, no erythema, no pruritus NEUROLOGIC: Denies weakness, dizziness, headache, numbness, change in speech, confusion PSYCHIATRIC: No concerning psychosocial issues. 12 point review of systems is negative except for those stated above and HPI Patient History Medical History Kidney stones (Acute) Surgical History No pertinent past surgical history (Acute) Social History Smoking Status: Current every day smoker tobacco type: cigarettes alcohol intake frequency: 0-2 drinks per day Substance Use Type: does not use Exam Initial Vital Signs Initial Vital Signs: Vital Signs Temperature 97.5 F L 06/20/19 09:15 Pulse Rate 96 H 06/20/19 09:15 Respiratory Rate 18 06/20/19 09:15 Blood Pressure 183/101 H 06/20/19 09:15 Pulse Oximetry 100 06/20/19 09:15 GENERAL: Young female appears in and in no acute distress. HEENT: Head atraumatic,EOMI, pupils reactive, face symmetric, moist mucous membranes CARDIOVASCULAR: Regular rate and rhythm without murmurs, rubs or gallops. RESPIRATORY: Breath sounds equal bilaterally, no wheezes rales or rhonchi. ABDOMEN: Soft, mild right upper quadrant pain with positive Gusman sign no guarding rebound no lower abdominal pain in right or left quadrant minimal epigastric : Right CVA tenderness EXTREMITIES: Normal range of motion, no clubbing or edema. Neurovascularly intact NEUROLOGICAL: Alert and oriented x4.Normal gait and speech. Cranial nerves II through XII grossly intact. SKIN: Warm, dry, no laceration, no petechiae, no rashes or lesions. Course Orders Ordered: ED Orders 06/20/19 09:20 Complete Blood Count AUTO DIFF Stat Comprehensive Metabolic Panel Stat Lipase Stat Urine Culture Stat Urine Microscopic Stat 06/20/19 09:24 US abdomen complete Stat 06/20/19 10:48 CT kidney ureter bladder (KUB) Stat Discontinued Medications Sodium Chloride (Normal Saline 0.9%) 1,000 mls @ 1,000 mls/hr IV CONT BRIGHT Last Infusion: 06/20/19 10:22 Dose: 0 mls/hr Documented by: Admin: 06/20/19 09:30 Dose: 1,000 mls/hr Documented by: ABRAHAM Ketorolac Tromethamine (Toradol) 30 mg IV NOW ONE Stop: 06/20/19 09:25 Last Admin: 06/20/19 09:30 Dose: 30 mg Documented by: ABRAHAM Ondansetron HCl (Zofran) 4 mg IV NOW ONE Stop: 06/20/19 09:25 Last Admin: 06/20/19 09:30 Dose: 4 mg Documented by: ABRAHAM Consultations Consultation #1: Dr. Hanna, urology updated patient's symptoms and test results. Patient is a patient of Dr. Quezada. Recommends 30 day supply of Flomax antibiotics pain meds and calling for outpatient follow-up. Time: 12:09 Vital Signs Vital signs: Vital Signs - 8 hr 06/20/19 09:15 06/20/19 10:57 06/20/19 12:23 Temperature 97.5 F L Pulse Rate 96 H 77 82 Respiratory Rate 18 16 15 Blood Pressure 183/101 H 129/83 Blood Pressure [Left Arm] 149/86 H Pulse Oximetry 100 98 100 MDM - Abdominal Pain Lab Data Attestation: I reviewed the patient's lab results. Result diagrams: 06/20/19 09:20 06/20/19 09:20 Labs: Lab Results 06/20/19 06/20/19 06/20/19 Range/Units 09:20 09:20 09:20 WBC 15.9 H (4.5-11.0) X10^3/uL RBC 4.87 (4.0-5.2) X10^6/uL Hgb 14.2 (12.0-16.0) g/dL Hct 41.5 (36-46) % MCV 85.3 (80-100) fL MCH 29.2 (26-34) PG MCHC 34.3 (30-36) % RDW 14.8 (11.6-14.8) % Plt Count 279 (150-400) X10^3/uL Neut % (Auto) 82.1 H (50-75) % Lymph % (Auto) 10.2 L (25-40) % [place] % (Auto) 6.2 (3-14) % Eos % (Auto) 1.3 L (2-4) % Baso % (Auto) 0.2 (0-2) % Neut # (Auto) 88847 H (8583-4753) /uL Lymph # (Auto) 1600 (1776-6679) /uL [place] # (Auto) 1000 H (0-900) /uL Eos # (Auto) 200 (0-450) /uL Baso # (Auto) 0 (0-100) /uL Sodium 139 (137-145) mmol/L Potassium 4.3 (3.4-5.1) mmol/L Chloride 109 H (98-107) mmol/L Carbon Dioxide 23 (22-32) mmol/L BUN 13 (7-17) mg/dL Creatinine 1.20 H (0.52-1.04) mg/dL Estimated GFR 50.6 L (>60) mL/min BUN/Creatinine Ratio 10.8 (6-22) Glucose 110 H (70-100) mg/dL Calcium 10.5 H (8.4-10.2) mg/dL Total Bilirubin 0.7 (0.2-1.3) mg/dL AST 25 (14-36) IU/L ALT 24 (<35) IU/L Alkaline Phosphatase 73 (38-126) U/L Total Protein 7.5 (6.3-8.2) g/dL Albumin 4.4 (3.5-5.0) g/dL Globulin 3.1 (1.7-4.1) g/dL Albumin/Globulin Ratio 1.4 (1.0-2.8) Lipase 41 (23-300) U/L Urine RBC 1-5/hpf (0-5/HPF) Urine WBC >100/hpf H (0-5/HPF) Ur Squamous Epith Cells 0-1 /hpf (0-5/HPF) Urine Bacteria Moderate (10-30) H (None) Urine Mucus 1+ H (Negative) Ur Culture Indicated? Specimen cultured Point of care testing: Point of Care Testing Test Results Negative Urine Dip Bedside Urine Glucose Negative Bedside Urine Bilirubin - Negative Bedside Urine Ketone +/- 5 Urine Specific [place] 1.015 Bedside Urine Occult Blood ++ Bedside Urine pH 6.5 Bedside Urine Protein + 30 Bedside Urine Urobilinogen +/- 1mg Bedside Urine Nitrite - Negative Bedside Urine Leukocytes +++ 500 Esterase Imaging Data US - abdomen: Radiologist's impression: PROCEDURE: US ABDOMEN COMPLETE INDICATIONS: RUQ PAIN, HISTORY GALLSTONES AND KIDNEY STONES TECHNIQUE: Real-time scanning was performed of the abdominal and retroperitoneal organs, with image documentation. COMPARISON: None. FINDINGS: Liver: Liver is normal in size and homogeneous in echotexture, hyperechoic consistent with fatty infiltration. Gallbladder: At least 2 gallstones are present within the gallbladder lumen, and more may be present partially visualized. The gallbladder wall is abnormally thickened at up to 6 mm, and there is no definite tenderness on sonographic palpation the patient is receiving pain medication. Biliary ducts: Intrahepatic bile ducts are non-dilated. Extrahepatic bile duct caliber measures 12.0 mm. Normal is 6-7 mm or less in diameter, or 10 mm or less post-cholecystectomy. Pancreas: Visualized portions of the pancreas are sonographically normal. Spleen: Spleen is normal in size and homogeneous in echotexture. Kidneys: Kidneys are normal in size and echotexture. Right kidney measures 11.3 cm long; left kidney measures 13.4 cm long. No hydronephrosis or right-sided nephrolithiasis. A left-sided 7 mm nonobstructive collecting system calculus is seen and there is right-sided hydronephrosis with a possible distal ureteral stone No solid masses. Aorta: Visualized aorta is normal in caliber at less than 3 cm. Iliacs: Proximal common iliac arteries are normal in caliber at less than 2.5 cm. IVC: Intrahepatic inferior vena cava is patent. Miscellaneous: No free abdominal fluid. There is a large left-sided ovarian cyst measuring up to 11.6 x 8.6 x 9.0 cm. Mural nodularity is associated. IMPRESSION: 1. Fatty infiltration throughout the liver. 2. Gallstones within the gallbladder lumen, abnormal biliary distention to up to 12 mm, consider and MR cholangiogram for distal common duct stone or mass. However, no intrahepatic biliary distention is found. 3. Hydronephrosis right kidney, possibly associated with distal ureteral stone. CT KUB may be warranted at this time. 7 mm nonobstructive renal collecting system calculus on the left incidentally noted. 4. Large mildly complex left ovarian cyst measuring up to 11.6 cm. Dedicated pelvic ultrasound is recommended with both transabdominal and transvaginal scanning. Dictated by: Luisito Sanz M.D. on 06/20/2019 at 11:02 CT scan - abdomen: Radiologist's impression: PROCEDURE: CT KIDNEY URETER BLADDER (KUB) INDICATIONS: right flank pain TECHNIQUE: Noncontrast 5 mm thick sections acquired from the diaphragms to the symphysis. 5 mm thick coronal and sagittal reformats were then performed. For radiation dose reduction, the following was used: automated exposure control, adjustment of mA and/or kV according to patient size. COMPARISON: [facility], CT, KIDNEY/ URETER/BLADDER, 12/31/2015, 3:42. FINDINGS: Image quality: Excellent. Lung bases: Lung bases are clear. Heart size is normal. Urinary system: Both kidneys are normal in size. No kidney stones. No left-sided hydronephrosis or perinephric fat stranding. There is right-sided hydronephrosis and perinephric edema, and right-sided ureteral dilatation to the mid pelvis level where a calculus measuring up to 8 mm appears impacted. Both ureters appear non-dilated throughout their expected courses. Bladder wall thickness is normal; no calcified bladder stones. Other solid organs: Liver is normal in size. Gallbladder contains a 1.5 cm peripherally calcified gallstone but is not inflamed. Pancreas is normal in contours. Spleen is normal in size. No adrenal nodules. Peritoneum and bowel: Unenhanced bowel loops demonstrate normal wall thickness and caliber. No free fluid or air. Nodes and vessels: No retroperitoneal or mesenteric adenopathy by size criteria. Aorta and inferior vena cava are normal in caliber. Abdominal wall: No ventral hernias. Pelvis: No free pelvic fluid. No inguinal hernias or adenopathy. There is a 4.2 cm water density right ovarian cyst. Bones: No suspicious bony lesions. No vertebral body compression fractures. IMPRESSION: 4.8 cm water density right ovarian cyst incidentally noted. 8mm impacted calculus distal right ureter within the pelvis, producing moderately severe right-sided hydronephrosis and hydroureter. 1.5 cm peripherally calcified gallstone within the gallbladder lumen. Dictated by: Luisito Sanz M.D. on 06/20/2019 at 11:07 Approved by: Luisito Sanz M.D. on 06/20/2019 at 11:2 MDM Narrative Medical decision making narrative: The patient has both gallstone and all right-sided kidney stone. She has no elevated bilirubin or LFTs, complaining more of right-sided flank pain. She has an impacted all right-sided kidney stone with hydroureter, along with slightly elevated creatinine of 1.2 previously 1.0. I think today her primary cause of pain and discomfort is a kidney stone. I have discussed with her that she will electively need to have her gallbladder removed, however I think for now we should focus on kidney. I have spoken with Urology who is given recommendations and agrees with outpatient follow-up. I have also discussed with patient signs and symptoms and when to return to ED. Discharge Plan Departure Patient Disposition: Home Clinical Impression: Ureteral stone with hydronephrosis Cholelithiasis Qualifiers: Cholelithiasis location: gallbladder Cholecystitis presence: without cholecystitis Biliary obstruction: without biliary obstruction Qualified Code(s): K80.20 - Calculus of gallbladder without cholecystitis without obstruction Discharge Date/Time: 06/20/19 12:23 Instructions: Gallstones, DI for Kidney Stones Activity Restrictions/Additional Instructions: *You have been diagnosed with a kidney stone and gallstone *What to do: At this time you have a large 8 mm kidney stone in the right side all likely causing your new pain today. You will likely need intervention from Urology. You will also need to have her gallbladder removed at some point. you have a large stone there as well. *Continue to take medications as directed Ibuprofen 800 mg every 8 hours if needed for [id number] pain [place] 1 tablet every 6 hours if needed for severe pain Zofran 4 mg every 8 hours if needed for nausea or vomiting Bactrim 1 tablet twice a day for 7 days for infection Flomax 0.4 mg once a day *Follow up with your primary care provider in 2-3 days Follow-up with Dr. Lopez, call office today to schedule an appointment *Return to ER if you should have increasing pain persistent vomiting,fever or any new, worsening or concerning symptoms CONTROLLED SUBSTANCE DISCHARGE (Narcotoic/benzodiazepine/Flexeril/Phenergan) 1. You have been prescribed narcotic medications, it does have acetaminophen/Tylenol/paracetamol in it so do not take extra Tylenol or Tylenol containing products 2. Please understand that we cannot provide further refills of narcotics, benzodiazepines or controlled substances through the ED and her pain management will need to be through your provider. 3. While on these medications you cannot drive or operate heavy machinery. 4. You cannot sign legal documents or perform any duties such as this. 5. As long as you're taking opiate pain medications he should also be taking a stool softener such as Colace, Dulcolax, MiraLAX or prune juice, to help avoid constipation. Prescriptions: New sulfamethoxazole-trimethoprim [Bactrim DS] 800-160 mg tablet 1 tab PO BID 7 Days Qty: 14 RF: 0 hydrocodone-acetaminophen 5-325 mg tablet 1 tab PO Q6H PRN (Reason: pain) Qty: 10 RF: 0 ondansetron 4 mg tablet,disintegrating 4 mg PO Q8H PRN (Reason: nausea and vomiting) Qty: 10 RF: 0 tamsulosin [Flomax] 0.4 mg capsule 0.4 mg PO DAILY Qty: 30 RF: 0 Referrals: [facility] [Provider Group] Jovanna Lopez MD [Non-Staff] -
[2019-06-20] MEDS: SODIUM CHLORIDE 0.9% 1,000 ML 1000 ML IV (09:30)
[2019-06-20] MEDS: KETOROLAC 60 MG/2 ML VIAL 30 MG IV (09:30)
[2019-06-20] MEDS: ONDANSETRON 4 MG/2 ML INJ IV (09:30)
[2019-06-20 09:32] LABS: Add Manual Diff / Slide Review NO; Basophils Absolute Auto 0 /uL (0-100); Basophils Percent Auto 0.2 % (0-2); Eosinophils Absolute Auto 200 /uL (0-450); Eosinophils Percent Auto 1.3 % (2-4); Hematocrit 41.5 % (36-46); Hemoglobin 14.2 g/dL (12.0-16.0); Lymphocytes Absolute Auto 1600 /uL (1100-4500); Lymphocytes Percent Auto 10.2 % (25-40); Mean Corpuscular HGB Conc 34.3 % (30-36); Mean Corpuscular Hemoglobin 29.2 PG (26-34); Mean Corpuscular Volume 85.3 fL (80-100); Monocytes Absolute Auto 1000 /uL (0-900); Monocytes Percent Auto 6.2 % (3-14); Neutrophils Absolute Auto 13100 /uL (1500-7000); Neutrophils Percent Auto 82.1 % (50-75); Platelet Count 279 X10^3/uL (150-400); Red Blood Cell Count 4.87 X10^6/uL (4.0-5.2); Red Cell Distribution Width 14.8 % (11.6-14.8); White Blood Cell Count 15.9 X10^3/uL (4.5-11.0)
[2019-06-20 09:42] LABS: Bacteria Urine Moderate (10-30); Culture Indicated Urine Specimen Cultured; Mucus Urine 1+ (Negative); RBC Urine 1-5/HPF (0-5/HPF); Squamous Epithelial Cell Urine 0-1 /HPF (0-5/HPF); WBC Urine >100/HPF (0-5/HPF)
[2019-06-20 09:50] LABS: Alanine Aminotransferase 24 IU/L (<35); Albumin 4.4 g/dL (3.5-5.0); Albumin Globulin Ratio 1.4 (1.0-2.8); Alkaline Phosphatase 73 U/L (38-126); Aspartate Aminotransferase 25 IU/L (14-36); BUN Creatinine Ratio 10.8 (6-22); Bilirubin Total 0.7 mg/dL (0.2-1.3); Blood Urea Nitrogen 13 mg/dL (7-17); Calcium 10.5 mg/dL (8.4-10.2); Carbon Dioxide 23 mmol/L (22-32); Chloride 109 mmol/L (98-107); Estimated Glomerular Filt Rate 50.6 mL/min (>60); Globulin 3.1 g/dL (1.7-4.1); Glucose 110 mg/dL (70-100); HEMOLYSIS < 15 (0-50); Lipase 41 U/L (23-300); Potassium 4.3 mmol/L (3.4-5.1); Sodium 139 mmol/L (137-145); Total Protein 7.5 g/dL (6.3-8.2)
--- NOTE | 2019-06-20 10:48 | DI.CT.S_ITS ---
PROCEDURE: CT KIDNEY URETER BLADDER (KUB) INDICATIONS: right flank pain TECHNIQUE: Noncontrast 5 mm thick sections acquired from the diaphragms to the symphysis. 5 mm thick coronal and sagittal reformats were then performed. For radiation dose reduction, the following was used: automated exposure control, adjustment of mA and/or kV according to patient size. COMPARISON: [facility], CT, KIDNEY/ URETER/BLADDER, 12/31/2015, 3:42. FINDINGS: Image quality: Excellent. Lung bases: Lung bases are clear. Heart size is normal. Urinary system: Both kidneys are normal in size. No kidney stones. No left-sided hydronephrosis or perinephric fat stranding. There is right-sided hydronephrosis and perinephric edema, and right-sided ureteral dilatation to the mid pelvis level where a calculus measuring up to 8 mm appears impacted. Both ureters appear non-dilated throughout their expected courses. Bladder wall thickness is normal; no calcified bladder stones. Other solid organs: Liver is normal in size. Gallbladder contains a 1.5 cm peripherally calcified gallstone but is not inflamed. Pancreas is normal in contours. Spleen is normal in size. No adrenal nodules. Peritoneum and bowel: Unenhanced bowel loops demonstrate normal wall thickness and caliber. No free fluid or air. Nodes and vessels: No retroperitoneal or mesenteric adenopathy by size criteria. Aorta and inferior vena cava are normal in caliber. Abdominal wall: No ventral hernias. Pelvis: No free pelvic fluid. No inguinal hernias or adenopathy. There is a 4.2 cm water density right ovarian cyst. Bones: No suspicious bony lesions. No vertebral body compression fractures. IMPRESSION: 4.8 cm water density right ovarian cyst incidentally noted. 8mm impacted calculus distal right ureter within the pelvis, producing moderately severe right-sided hydronephrosis and hydroureter. 1.5 cm peripherally calcified gallstone within the gallbladder lumen. Dictated by: Luisito Sanz M.D. on 06/20/2019 at 11:07 Approved by: Luisito Sanz M.D. on 06/20/2019 at 11:29
[2019-06-20 10:57] VITALS: BP 149/86; PULSE 77; RESP 16; O2SAT 98
[2019-06-20 12:23] VITALS: BP 129/83; PULSE 82; RESP 15; O2SAT 100
== END 2019-06-20 12:23 | disposition home or self-care (01) ==
PROVIDERS: Emergency Provider Emergency Medicine
DX: N13.2 Hydronephrosis with renal and ureteral calculous obstruction (principal); K80.20 Calculus of gallbladder without cholecystitis without obstruction
CPT/HCPCS: 36415; 74176; 76700; 80053; 81003; 81015; 81025; 83690; 85025; 87086; 96361; 96374; 96375; 99283; 99284; J1885; J2405

== ENCOUNTER 2020-05-24 15:40 | Emergency (ER) | payer OTHER, MEDICAID, SELFPAY ==
[2020-05-24 15:52] VITALS: BP 189/125; PULSE 85; RESP 20; TEMP 36.3; O2SAT 99; BMI 31.5
[2020-05-24 16:10] LABS: Bacteria Urine None Seen; Pregnancy Test Urine Negative (Negative)
[2020-05-24 16:11] LABS: Appearance Urine UA CLEAR; Bilirubin Urine UA NEGATIVE (NEGATIVE); Color Urine UA YELLOW; Glucose Urine UA NEGATIVE (Negative); Ketones Urine UA NEGATIVE (NEGATIVE); Leukocyte Esterase Urine UA TRACE (NEGATIVE); Nitrite Urine UA NEGATIVE (Negative); Occult Blood Urine UA 3+ (Negative); Protein Urine UA NEGATIVE (Negative); Specific Gravity Urine UA 1.025 (1.000-1.035); Urobilinogen Urine UA 0.2 E.U./dL (0.2)
[2020-05-24 16:15] LABS: RBC Urine 30-100/HPF (0-5/HPF)
[2020-05-24 16:16] LABS: Culture Indicated Urine Cult Not Indicated; Squamous Epithelial Cell Urine 10-30 /HPF (0-5/HPF); WBC Urine 1-5/HPF (0-5/HPF)
--- NOTE | 2020-05-24 16:44 | PC.NURSE ---
attempted to call pt from waiting room x 1 without answer.
--- NOTE | 2020-05-24 17:08 | PC.NURSE ---
Elliott attempted to call pt again,unable to locate pt in lobby
== END 2020-05-24 17:08 | disposition left against medical advice (07) ==
PROVIDERS: Emergency Provider Emergency Medicine
DX: N23 Unspecified renal colic (principal)
CPT/HCPCS: 81001; 81025; 99281

== ENCOUNTER 2022-02-18 21:53 | Emergency (ER) | payer OTHER, MEDICAID, SELFPAY ==
[2022-02-18 21:55] VITALS: BP 150/91; PULSE 93; RESP 19; TEMP 37; O2SAT 99; BMI 32.3
[2022-02-18 22:15] LABS: Add Manual Diff / Slide Review NO; Basophils Absolute Auto 0 /uL (0-100); Basophils Percent Auto 0.3 % (0-2); Eosinophils Absolute Auto 200 /uL (0-450); Eosinophils Percent Auto 1.4 % (2-4); Hemoglobin 13.7 g/dL (12.0-16.0); Lymphocytes Absolute Auto 1000 /uL (1100-4500); Lymphocytes Percent Auto 8.1 % (25-40); Mean Corpuscular HGB Conc 33.3 % (30-36); Mean Corpuscular Hemoglobin 28.7 PG (26-34); Mean Corpuscular Volume 86.2 fL (80-100); Monocytes Absolute Auto 400 /uL (0-900); Monocytes Percent Auto 3.4 % (3-14); Neutrophils Absolute Auto 11100 /uL (1500-7000); Neutrophils Percent Auto 86.8 % (50-75); Platelet Count 253 X10^3/uL (150-400); Red Blood Cell Count 4.76 X10^6/uL (4.0-5.2); Red Cell Distribution Width 14.4 % (11.6-14.8); White Blood Cell Count 12.8 X10^3/uL (4.5-11.0)
--- NOTE | 2022-02-18 22:29 | ED_ITS ---
HPI - Abdominal Pain General Chief Complaint: Abdominal Pain Stated Complaint: Abd pain Time Seen by Provider: 02/18/22 22:29 Source: patient Mode of arrival: Wheelchair History of Present Illness HPI narrative: 41-year-old female daily smoker presents with family in the chief complaint of dysuria, frequency, urgency and suprapubic pain over the course of the past day or 2. She is had nausea but denies any vomiting. She denies any chest pain, shortness of breath or cough. She has had no back pain. She states her abdominal discomfort is worse when she moves or urinates, improves with rest and denies any radiation. She denies vaginal bleeding or discharge Related Data Previous Rx's Medication Instructions Recorded hydrocodone 5 mg-acetaminophen 325 1 tab PO Q6H PRN pain #10 tabs 06/20/19 mg tablet ondansetron 4 mg disintegrating 4 mg PO Q8H PRN nausea and 06/20/19 tablet vomiting #10 tabs tamsulosin 0.4 mg capsule (Flomax) 0.4 mg PO DAILY #30 caps 06/20/19 cephalexin 500 mg capsule 500 mg PO BID 7 days #14 caps 02/18/22 ketorolac 10 mg tablet 10 mg PO Q6H PRN pain #14 tabs 02/18/22 ondansetron 4 mg disintegrating 4 mg PO TID-QID PRN nausea and 02/18/22 tablet vomiting #10 tabs Allergies Allergy/AdvReac Type Severity Reaction Status Date / Time No Known Drug Allergies Allergy Verified 06/20/19 09:15 Review of Systems Review of Systems Narrative: GENERAL: See HPI HEENT: Denies sinus pain, ear pain, sore throat, difficulty swallowing, dizziness. RESPIRATORY: Denies dyspnea, cough, wheezing, hemoptysis, sputum. CARDIOVASCULAR: Denies chest pain, palpitations, orthopnea, edema, GASTROINTESTINAL: See HPI. : See HPI MUSCULOSKELETAL: denies weakness, joint pain, or bony pain SKIN: Denies rash, skin lesions, or other NEUROLOGIC: Denies weakness, headache, numbness, change in speech, confusion, seizures, incoordination. PSYCHIATRIC: No concerning psychosocial issues. 12 point review of systems is negative except for those stated above Patient History Medical History Kidney stones Surgical History No pertinent past surgical history Social History Smoking Status: Current every day smoker Smoking Status: Current every day smoker tobacco type: cigarettes alcohol intake frequency: 0-2 drinks per day Substance Use Type: does not use Exam Narrative Exam Narrative: GENERAL: [41] year old patient appears stated age. Well-developed patient, in mild distress. HEAD: Atraumatic. Normocephalic. EYES: Pupils equal round and reactive. Extraocular motions intact. No scleral icterus. No injection or drainage. ENT: Nose without bleeding, purulent drainage. Throat without erythema, tonsillar hypertrophy or exudate. Airway patent. NECK: Trachea midline. Non tender CARDIOVASCULAR: Regular rate and rhythm without murmurs, gallops, or rubs. RESPIRATORY: Clear to auscultation. Breath sounds equal bilaterally. No wheezes, rales, or rhonchi. GASTROINTESTINAL: Abdomen soft, minimal suprapubic tenderness, no rebound, nondistended. Bowel sounds present in all 4 quadrants EXTREMITIES: No edema or joint tenderness. BACK: Nontender without deformity or crepitance. No flank tenderness. NEURO: AOx3. SKIN: No rash or erythema of visible areas Initial Vital Signs Initial Vital Signs: Vital Signs Temperature 98.6 F 02/18/22 21:55 Pulse Rate 93 H 02/18/22 21:55 Respiratory Rate 19 02/18/22 21:55 Blood Pressure 150/91 H 02/18/22 21:55 Pulse Oximetry 99 02/18/22 21:55 Oxygen Delivery Method 02/18/22 21:55 Course Orders Ordered: ED Orders 02/18/22 22:00 Urine Culture Stat Urine Microscopic Stat 02/18/22 22:07 Complete Blood Count AUTO DIFF Stat Comprehensive Metabolic Panel Stat Lipase Stat Discontinued Medications Sodium Chloride (Normal Saline 0.9%) 1,000 mls @ 1,000 mls/hr IV BOLUS ONE Stop: 02/18/22 23:51 Last Infusion: 02/18/22 23:48 Dose: 0 mls/hr Documented By: Admin: 02/18/22 23:03 Dose: 1,000 mls/hr Documented By: ROSE Ceftriaxone Sodium 2,000 mg/ (Sodium Chloride) 100 mls @ 200 mls/hr IV NOW ONE Stop: 02/18/22 22:53 Last Infusion: 02/18/22 23:47 Dose: 0 mls/hr Documented By: Admin: 02/18/22 23:02 Dose: 200 mls/hr Documented By: ROSE Ketorolac Tromethamine (Ketorolac 30 Mg/Ml Vial) 15 mg IV NOW ONE Stop: 02/18/22 22:53 Last Admin: 02/18/22 23:02 Dose: 15 mg Documented By: ROSE Vital Signs Vital signs: Vital Signs - 8 hr 02/18/22 21:55 02/19/22 00:00 Temperature 98.6 F Pulse Rate 93 H 85 Respiratory Rate 19 18 Blood Pressure 150/91 H 141/88 H Pulse Oximetry 99 99 Oxygen Delivery Method Room Air MDM - Abdominal Pain Lab Data Result diagrams: 02/18/22 22:07 02/18/22 22:07 Labs: Lab Results 02/18/22 02/18/22 02/18/22 Range/Units 22:00 22:07 22:07 WBC 12.8 H (4.5-11.0) X10^3/uL RBC 4.76 (4.0-5.2) X10^6/uL Hgb 13.7 (12.0-16.0) g/dL Hct 41.0 (36-46) % MCV 86.2 (80-100) fL MCH 28.7 (26-34) PG MCHC 33.3 (30-36) % RDW 14.4 (11.6-14.8) % Plt Count 253 (150-400) X10^3/uL Neut % (Auto) 86.8 H (50-75) % Lymph % (Auto) 8.1 L (25-40) % [place] % (Auto) 3.4 (3-14) % Eos % (Auto) 1.4 L (2-4) % Baso % (Auto) 0.3 (0-2) % Neut # (Auto) 97749 H (8986-0813) /uL Lymph # (Auto) 1000 L (2810-9178) /uL [place] # (Auto) 400 (0-900) /uL Eos # (Auto) 200 (0-450) /uL Baso # (Auto) 0 (0-100) /uL Sodium 137 (137-145) mmol/L Potassium 3.9 (3.4-5.1) mmol/L Chloride 108 H (98-107) mmol/L Carbon Dioxide 23 (22-32) mmol/L BUN 12 (7-17) mg/dL Creatinine 1.09 H (0.52-1.04) mg/dL Estimated GFR > 60 (>60) mL/min BUN/Creatinine Ratio 11.0 (6-22) Glucose 137 H (70-100) mg/dL Calcium 9.3 (8.4-10.2) mg/dL Total Bilirubin 0.6 (0.2-1.3) mg/dL AST 25 (14-36) IU/L ALT 26 (<35) IU/L Alkaline Phosphatase 59 (38-126) U/L Total Protein 6.8 (6.3-8.2) g/dL Albumin 3.9 (3.5-5.0) g/dL Globulin 2.9 (1.7-4.1) g/dL Albumin/Globulin Ratio 1.3 (1.0-2.8) Lipase 41 (23-300) U/L Urine RBC None seen (0-5/HPF) Urine WBC >100/hpf H (0-5/HPF) Ur Squamous Epith Cells 1-5 /hpf D (0-5/HPF) Urine Bacteria Many (>30) H (None) Ur Culture Indicated? Specimen cultured Point of care testing: Point of Care Testing Test Results Negative Urine Dip Bedside Urine Glucose Negative Bedside Urine Bilirubin - Negative Bedside Urine Ketone - Negative Urine Specific [place] 1.015 Bedside Urine Occult Blood + Bedside Urine pH 6.5 Bedside Urine Protein + 30 Bedside Urine Urobilinogen 1+ 2mg Bedside Urine Nitrite - Negative Bedside Urine Leukocytes ++ 125 Esterase MDM Narrative Medical decision making narrative: Patient with classic UTI symptoms including dysuria, frequency and urgency with urine convincing for infection. She has no systemic findings such as fever, chills, nausea or vomiting nor back pain. She demonstrates no signs of sepsis. Discomfort is well controlled, she feels better after above-stated therapies. Questions answered to her apparent satisfaction and return precautions discussed Discharge Plan Departure Patient Disposition: Home Clinical Impression: UTI (urinary tract infection) Instructions: DI for Urinary Tract Infection (UTI) Activity Restrictions/Additional Instructions: *You have been diagnosed with [urinary tract infection] *What to do: *Please continue to take your regular medications as directed. [ x] New medication prescriptions sent to your pharmacy: [[facility] ] [ ] New medication written as a paper prescription [ ] No new medications given *Please follow up with your primary care provider in 2-3 days, call for an chetna ointment. Let them know you were seen in the Emergency Department and that we ask that you be seen in follow up. We will electronically transmit a record of today's note if your PCP is in our system *If you do not have a primary care provider please contact the [facility] Resource line at [phone]. They will ask some questions about your medical history and help get you set up with a doctor in the community. *Return to Emergency Department if you should have any new, worsening or con cerning symptoms, such as [fever greater than 101 F, shaking chills, worsening pain, persistent vomiting or other bothersome symptoms] Prescriptions: New ketorolac 10 mg tablet 10 mg PO Q6H PRN (Reason: pain) Qty: 14 0RF cephalexin 500 mg capsule 500 mg PO BID 7 Days Qty: 14 0RF ondansetron 4 mg tablet,disintegrating 4 mg PO TID-QID PRN (Reason: nausea and vomiting) Qty: 10 0RF No Action hydrocodone-acetaminophen 5-325 mg tablet 1 tab PO Q6H PRN (Reason: pain) Qty: 10 0RF ondansetron 4 mg tablet,disintegrating 4 mg PO Q8H PRN (Reason: nausea and vomiting) Qty: 10 0RF tamsulosin [Flomax] 0.4 mg capsule 0.4 mg PO DAILY Qty: 30 0RF Visit Report Forms: Patient Portal/API
[2022-02-18 22:41] LABS: Alanine Aminotransferase 26 IU/L (<35); Albumin 3.9 g/dL (3.5-5.0); Albumin Globulin Ratio 1.3 (1.0-2.8); Alkaline Phosphatase 59 U/L (38-126); Aspartate Aminotransferase 25 IU/L (14-36); Bilirubin Total 0.6 mg/dL (0.2-1.3); Blood Urea Nitrogen 12 mg/dL (7-17); Calcium 9.3 mg/dL (8.4-10.2); Carbon Dioxide 23 mmol/L (22-32); Chloride 108 mmol/L (98-107); Estimated Glomerular Filt Rate > 60 mL/min (>60); Globulin 2.9 g/dL (1.7-4.1); Glucose 137 mg/dL (70-100); HEMOLYSIS 24 (0-50); Lipase 41 U/L (23-300); Potassium 3.9 mmol/L (3.4-5.1); Sodium 137 mmol/L (137-145); Total Protein 6.8 g/dL (6.3-8.2)
[2022-02-18 22:47] LABS: Bacteria Urine Many (>30); Culture Indicated Urine Specimen Cultured; RBC Urine None Seen (0-5/HPF); Squamous Epithelial Cell Urine 1-5 /HPF (0-5/HPF); WBC Urine >100/HPF (0-5/HPF)
[2022-02-18] MEDS: KETOROLAC 30 MG/ML VIAL 15 MG IV (23:02)
[2022-02-18] MEDS: cefTRIAXone 2,000 MG in SODIUM CHLORIDE 0.9% 100 ML 200 MG IV (23:02)
[2022-02-18] MEDS: SODIUM CHLORIDE 0.9% 1,000 ML 1000 ML IV (23:03)
[2022-02-19] VITALS: BP 141/88; PULSE 85; RESP 18; O2SAT 99
== END 2022-02-19 00:01 | disposition home or self-care (01) ==
PROVIDERS: Emergency Provider Emergency Medicine
DX: N39.0 Urinary tract infection, site not specified (principal)
CPT/HCPCS: 36415; 80053; 81003; 81015; 81025; 83690; 85025; 87077; 87086; 87186; 96365; 96375; 99284; J0696; J1885

== ENCOUNTER 2022-02-19 19:23 | Observation (INO) | payer OTHER, MEDICAID, SELFPAY ==
[2022-02-19 19:51] VITALS: BP 130/72; PULSE 94; RESP 18; TEMP 36.8; O2SAT 99; BMI 31.5
--- NOTE | 2022-02-19 23:21 | ED.ABDPAIN ---
HPI - Abdominal Pain General Chief Complaint: Abdominal Pain Stated Complaint: abd. pain Time Seen by Provider: 02/19/22 23:21 Source: patient and family Mode of arrival: Wheelchair History of Present Illness HPI narrative: 41-year-old female daily smoker returns for worsening abdominal pain which is now solidly in her epigastrium and radiates to her back. She is had nausea and vomiting but denies any fever. Eating and drinking seems to exacerbate her symptoms. She states that she had had problems with her gallbladder in the past and there was some talk about removing it but for some reason it never happened, likely a consequence of COVID. She had been seen and evaluated last night and had evidence of a urinary tract infection and has been taking medications as prescribed. Her abdominal pain is worse when she moves and is associated with eating as mentioned. It improves with remaining still. She states that it is severe in its intensity and feels sharp and stabbing. She denies runny nose, sore throat or cough Related Data Previous Rx's Medication Instructions Recorded hydrocodone 5 mg-acetaminophen 325 1 tab PO Q6H PRN pain #10 tabs 06/20/19 mg tablet ondansetron 4 mg disintegrating 4 mg PO Q8H PRN nausea and 06/20/19 tablet vomiting #10 tabs tamsulosin 0.4 mg capsule (Flomax) 0.4 mg PO DAILY #30 caps 06/20/19 cephalexin 500 mg capsule 500 mg PO BID 7 days #14 caps 02/18/22 ketorolac 10 mg tablet 10 mg PO Q6H PRN pain #14 tabs 02/18/22 ondansetron 4 mg disintegrating 4 mg PO TID-QID PRN nausea and 02/18/22 tablet vomiting #10 tabs Allergies Allergy/AdvReac Type Severity Reaction Status Date / Time No Known Drug Allergies Allergy Verified 06/20/19 09:15 Review of Systems Review of Systems Narrative: GENERAL: Denies chills, fatigue, malaise, fever, sweats. HEENT: Denies sinus pain, ear pain, sore throat, difficulty swallowing, dizziness. RESPIRATORY: Denies dyspnea, cough, wheezing, hemoptysis, sputum. CARDIOVASCULAR: Denies chest pain, palpitations, orthopnea, edema, GASTROINTESTINAL: See HPI : See HPI MUSCULOSKELETAL: denies weakness, joint pain, or bony pain SKIN: Denies rash, skin lesions, or other NEUROLOGIC: Denies weakness, headache, numbness, change in speech, confusion, seizures, incoordination. PSYCHIATRIC: No concerning psychosocial issues. 12 point review of systems is negative except for those stated above Patient History Medical History (Updated 02/20/22 @ 04:26 by Aaron Hurd DO) Kidney stones Surgical History No pertinent past surgical history Social History Smoking Status: Current every day smoker Smoking Status: Current every day smoker tobacco type: cigarettes alcohol intake frequency: 0-2 drinks per day Substance Use Type: does not use Exam Narrative Exam Narrative: GENERAL: [41] year old patient appears stated age. Well-developed patient, in mild distress. HEAD: Atraumatic. Normocephalic. EYES: Pupils equal round and reactive. Extraocular motions intact. No scleral icterus. No injection or drainage. ENT: Nose without bleeding, purulent drainage. Throat without erythema, tonsillar hypertrophy or exudate. Airway patent. NECK: Trachea midline. Non tender CARDIOVASCULAR: Regular rate and rhythm without murmurs, gallops, or rubs. RESPIRATORY: Clear to auscultation. Breath sounds equal bilaterally. No wheezes, rales, or rhonchi. GASTROINTESTINAL: Abdomen soft, severe epigastric and RUQ pain, nondistended. EXTREMITIES: No edema or joint tenderness. BACK: Nontender without deformity or crepitance. No flank tenderness. NEURO: AOx3. SKIN: No rash or erythema of visible areas Initial Vital Signs Initial Vital Signs: Vital Signs Temperature 98.2 F 02/19/22 19:51 Pulse Rate 94 H 02/19/22 19:51 Respiratory Rate 18 02/19/22 19:51 Blood Pressure 130/72 02/19/22 19:51 Pulse Oximetry 99 02/19/22 19:51 Oxygen Delivery Method 02/19/22 19:51 Course Orders Ordered: ED Orders 02/19/22 23:30 Complete Blood Count AUTO DIFF Stat Comprehensive Metabolic Panel Stat Lipase Stat 02/20/22 00:23 CT chest abd pel w con Stat 02/20/22 01:29 US abdomen limited Stat Discontinued Medications Sodium Chloride (Normal Saline 0.9%) 1,000 mls @ 1,000 mls/hr IV BOLUS ONE Stop: 02/20/22 02:25 Last Admin: 02/20/22 02:30 Dose: 1,000 mls/hr Documented By: JERO Piperacillin Sod/Tazobactam (Sod 4.5 gm/ Sodium Chloride) 100 mls @ 200 mls/hr IV NOW ONE Stop: 02/20/22 01:27 Last Admin: 02/20/22 02:30 Dose: 200 mls/hr Documented By: JERO Consultations Consultation #1: Discussed with on-call surgery, Dr. Rodriguez, he is happy to accept patient on his service, request ultrasound Vital Signs Vital signs: Vital Signs - 8 hr 02/19/22 19:51 Temperature 98.2 F Pulse Rate 94 H Respiratory Rate 18 Blood Pressure 130/72 Pulse Oximetry 99 Oxygen Delivery Method Room Air MDM - Abdominal Pain Lab Data Result diagrams: 02/19/22 23:30 02/19/22 23:30 Labs: Lab Results 02/19/22 02/19/22 Range/Units 23:30 23:30 WBC 14.0 H (4.5-11.0) X10^3/uL RBC 4.30 (4.0-5.2) X10^6/uL Hgb 12.4 (12.0-16.0) g/dL Hct 37.2 (36-46) % MCV 86.7 (80-100) fL MCH 28.9 (26-34) PG MCHC 33.4 (30-36) % RDW 14.4 (11.6-14.8) % Plt Count 210 (150-400) X10^3/uL Neut % (Auto) 89.9 H (50-75) % Lymph % (Auto) 6.0 L (25-40) % [place] % (Auto) 2.8 L (3-14) % Eos % (Auto) 1.2 L (2-4) % Baso % (Auto) 0.1 (0-2) % Neut # (Auto) 30040 H (7675-0987) /uL Lymph # (Auto) 800 L (7625-0430) /uL [place] # (Auto) 400 (0-900) /uL Eos # (Auto) 200 (0-450) /uL Baso # (Auto) 0 (0-100) /uL Sodium 134 L (137-145) mmol/L Potassium 4.0 (3.4-5.1) mmol/L Chloride 107 (98-107) mmol/L Carbon Dioxide 20 L (22-32) mmol/L BUN 10 (7-17) mg/dL Creatinine 0.92 (0.52-1.04) mg/dL Estimated GFR > 60 (>60) mL/min BUN/Creatinine Ratio 10.9 (6-22) Glucose 101 H (70-100) mg/dL Calcium 9.4 (8.4-10.2) mg/dL Total Bilirubin 1.0 (0.2-1.3) mg/dL AST 29 (14-36) IU/L ALT 30 (<35) IU/L Alkaline Phosphatase 56 (38-126) U/L Total Protein 6.8 (6.3-8.2) g/dL Albumin 3.7 (3.5-5.0) g/dL Globulin 3.1 (1.7-4.1) g/dL Albumin/Globulin Ratio 1.2 (1.0-2.8) Lipase 36 (23-300) U/L Imaging Data US - abdomen: Radiologist's Impression: Gallbladder hydrops associated with cholelithiasis, pericholecystic fluid and positive sonographic Gusman sign. Findings are associated with mild central intrahepatic ductal dilatation and dilatation of the common bile duct and are suspicious for acute cholecystitis, artist color separation notes freely mobile stone CT scan - abdomen/pelvis: Radiologist's Impression: Close Abdomen Ultrasound 02/20/22 Chest/Abdomen/Pelvis CT (Signed) Noam Prasad - 02/20/22 Abdomen/Pelvis CT (Signed) Luisito Sanz - 06/20/19 Abdomen Ultrasound (Signed) Luisito Sanz - 06/20/19 Chest X-Ray (Signed) Goyo Cortés - 05/11/19 Abdomen Ultrasound (Signed) Goyo Cortés - 05/11/19 Launch?[address] [address] [address] Scan Report Signed Patient: Betsy Stinson MR#: [id number] : 1980 Acct:[id number] Age/Sex: 41 / F Date of Service: 02/20/22 Loc: ED Accession Number: [id number] ?? Procedure: CT chest abd pel w con Ordering Provider: Aaron Hurd D.O. PROCEDURE:? CT CHEST ABD PEL W CON ? INDICATIONS:? chest, abdomen pain, second visit ? TECHNIQUE:? After the administration of intravenous contrast, 5 mm thick sections acquired from the lung apices to the symphysis.? 2.5 mm thick coronal and sagittal reformats were acquired. ?Additional 7 mm thick coronal maximum intensity projection (MIP) reformats acquired through the lungs.? Optional 10-minute delayed imaging may be performed from the kidneys to the bladder.? For radiation dose reduction, the following was used:? automated exposure control, adjustment of mA and/or kV according to patient size.? ? COMPARISON:? None. ? FINDINGS:? Image quality:? Excellent.? ? CHEST:? Lungs:? No pulmonary contusions or lacerations.? No acute airspace opacities.? No pneumothorax or hemothorax.? Central and peripheral airways appear patent and normal in caliber.? ? Mediastinum:? No mediastinal hematomas.? Heart size is normal.? No pericardial effusion.? Thoracic aorta and pulmonary arteries demonstrate normal size and enhancement.? No mediastinal or hilar adenopathy.? Esophagus is normal in caliber.? No hiatal hernia.? ? Chest wall:? No rib fractures.? No subcutaneous emphysema.? No axillary or supraclavicular adenopathy.? Thyroid gland normal.? ? ? ABDOMEN:? Solid organs:? Small volume perihepatic ascites.? Markedly distended gallbladder with calcified gallstone near the gallbladder neck and cystic duct.? Common bile duct is dilated.? There are few minimally dilated intrahepatic biliary ducts.? Normal CT appearance of the spleen and pancreas.? No focal hepatic mass.? Atrophic right kidney.? Left kidney and ureter normal. ? Peritoneum and bowel:? No free fluid or air.? Unenhanced bowel loops demonstrate normal wall thickness and caliber.? ? Nodes and vessels:? No retroperitoneal or mesenteric adenopathy.? Aorta and inferior vena cava are normal in size and enhancement.? ? Miscellaneous:? No ventral hernias.? ? ? PELVIS:? Genitourinary:? Bladder wall thickness is normal.? ? Miscellaneous:? No inguinal hernias or adenopathy.? ? Bones:? Pelvic ring and hip joints appear intact.? No vertebral compression fractures.? ? ? IMPRESSION:? Abnormally distended gallbladder with stone near the origin of the cystic duct and biliary ductal dilatation.? Findings suspicious for cholecystitis and possibly common biliary ductal dilatation due to radiographically occult choledocholith or other biliary tract obstructing lesion. ? ? ? Dictated by: Noam Prasad M.D. on 02/20/2022 at 0:51 ? ? Approved by: Noam Prasad M.D. on 02/20/2022 at 0:56 ? MDM Narrative Medical decision making narrative: Patient presents with rather classic history and physical for gallbladder disease, though imaging would suggest the possibility of a dilated common bile duct there is no evidence of a ductal stone, and labs such as bilirubin, alk phos, AST, and ALT are all well within normal limits. Very low suspicion for choledocholithiasis. Patient appropriate for admission and likely surgical intervention here Discharge Plan Departure Patient Disposition: Admitted As Inpatient Clinical Impression: Cholecystitis, acute Prescriptions: No Action hydrocodone-acetaminophen 5-325 mg tablet 1 tab PO Q6H PRN (Reason: pain) Qty: 10 0RF ondansetron 4 mg tablet,disintegrating 4 mg PO Q8H PRN (Reason: nausea and vomiting) Qty: 10 0RF tamsulosin [Flomax] 0.4 mg capsule 0.4 mg PO DAILY Qty: 30 0RF ketorolac 10 mg tablet 10 mg PO Q6H PRN (Reason: pain) Qty: 14 0RF cephalexin 500 mg capsule 500 mg PO BID 7 Days Qty: 14 0RF ondansetron 4 mg tablet,disintegrating 4 mg PO TID-QID PRN (Reason: nausea and vomiting) Qty: 10 0RF
[2022-02-19 23:40] LABS: Add Manual Diff / Slide Review NO; Basophils Absolute Auto 0 /uL (0-100); Basophils Percent Auto 0.1 % (0-2); Eosinophils Absolute Auto 200 /uL (0-450); Eosinophils Percent Auto 1.2 % (2-4); Hematocrit 37.2 % (36-46); Hemoglobin 12.4 g/dL (12.0-16.0); Lymphocytes Absolute Auto 800 /uL (1100-4500); Mean Corpuscular HGB Conc 33.4 % (30-36); Mean Corpuscular Hemoglobin 28.9 PG (26-34); Mean Corpuscular Volume 86.7 fL (80-100); Monocytes Absolute Auto 400 /uL (0-900); Monocytes Percent Auto 2.8 % (3-14); Neutrophils Absolute Auto 12600 /uL (1500-7000); Neutrophils Percent Auto 89.9 % (50-75); Platelet Count 210 X10^3/uL (150-400); Red Cell Distribution Width 14.4 % (11.6-14.8)
[2022-02-19 23:51] LABS: Alanine Aminotransferase 30 IU/L (<35); Albumin 3.7 g/dL (3.5-5.0); Albumin Globulin Ratio 1.2 (1.0-2.8); Alkaline Phosphatase 56 U/L (38-126); Aspartate Aminotransferase 29 IU/L (14-36); BUN Creatinine Ratio 10.9 (6-22); Blood Urea Nitrogen 10 mg/dL (7-17); Calcium 9.4 mg/dL (8.4-10.2); Carbon Dioxide 20 mmol/L (22-32); Chloride 107 mmol/L (98-107); Estimated Glomerular Filt Rate > 60 mL/min (>60); Globulin 3.1 g/dL (1.7-4.1); Glucose 101 mg/dL (70-100); HEMOLYSIS 27 (0-50); Lipase 36 U/L (23-300); Sodium 134 mmol/L (137-145); Total Protein 6.8 g/dL (6.3-8.2)
[2022-02-20] VITALS (10 sets, daily range): BP systolic 133–174; BP diastolic 82–97; PULSE 83–90; RESP 16–18; TEMP 35.8–36.8; O2SAT 96–99; BMI 31.5
--- NOTE | 2022-02-20 00:23 | DI.CT.S_ITS ---
PROCEDURE: CT CHEST ABD PEL W CON INDICATIONS: chest, abdomen pain, second visit TECHNIQUE: After the administration of intravenous contrast, 5 mm thick sections acquired from the lung apices to the symphysis. 2.5 mm thick coronal and sagittal reformats were acquired. Additional 7 mm thick coronal maximum intensity projection (MIP) reformats acquired through the lungs. Optional 10-minute delayed imaging may be performed from the kidneys to the bladder. For radiation dose reduction, the following was used: automated exposure control, adjustment of mA and/or kV according to patient size. COMPARISON: None. FINDINGS: Image quality: Excellent. CHEST: Lungs: No pulmonary contusions or lacerations. No acute airspace opacities. No pneumothorax or hemothorax. Central and peripheral airways appear patent and normal in caliber. Mediastinum: No mediastinal hematomas. Heart size is normal. No pericardial effusion. Thoracic aorta and pulmonary arteries demonstrate normal size and enhancement. No mediastinal or hilar adenopathy. Esophagus is normal in caliber. No hiatal hernia. Chest wall: No rib fractures. No subcutaneous emphysema. No axillary or supraclavicular adenopathy. Thyroid gland normal. ABDOMEN: Solid organs: Small volume perihepatic ascites. Markedly distended gallbladder with calcified gallstone near the gallbladder neck and cystic duct. Common bile duct is dilated. There are few minimally dilated intrahepatic biliary ducts. Normal CT appearance of the spleen and pancreas. No focal hepatic mass. Atrophic right kidney. Left kidney and ureter normal. Peritoneum and bowel: No free fluid or air. Unenhanced bowel loops demonstrate normal wall thickness and caliber. Nodes and vessels: No retroperitoneal or mesenteric adenopathy. Aorta and inferior vena cava are normal in size and enhancement. Miscellaneous: No ventral hernias. PELVIS: Genitourinary: Bladder wall thickness is normal. Miscellaneous: No inguinal hernias or adenopathy. Bones: Pelvic ring and hip joints appear intact. No vertebral compression fractures. IMPRESSION: Abnormally distended gallbladder with stone near the origin of the cystic duct and biliary ductal dilatation. Findings suspicious for cholecystitis and possibly common biliary ductal dilatation due to radiographically occult choledocholith or other biliary tract obstructing lesion. Dictated by: Noam Prasad M.D. on 02/20/2022 at 0:51 Approved by: Noam Prasad M.D. on 02/20/2022 at 0:56
--- NOTE | 2022-02-20 01:29 | DI.US.S_ITS ---
PROCEDURE: US ABDOMEN LIMITED INDICATIONS: epigastric pain, GB? TECHNIQUE: Real-time scanning was performed of the abdominal and retroperitoneal organs, with image documentation. COMPARISON: [facility], US, US ABDOMEN COMPLETE, 06/20/2019, 9:49. Same-day CT FINDINGS: Liver: Liver measures 16.1 cm. Echogenicity is increased. Main portal vein is patent. Gallbladder: Cholelithiasis. Wall thickness is about 1.5 mm. Pericholecystic fluid. Positive sonographic Gusman sign. Distended gallbladder. Biliary ducts: CHD is about 5 mm. CBD is about 12 mm. Pancreas: Within normal limits. IMPRESSION: Cholecystitis. Agree with preliminary report. Biliary dilation, distal aspect of the CBD is not well seen. An occult obstructing lesion such as a stone could be better evaluated with MRCP or ERCP if needed. Dictated by: Rashaun Francis M.D. on 02/20/2022 at 8:32 Approved by: Rashaun Francis M.D. on 02/20/2022 at 8:35
[2022-02-20] MEDS: SODIUM CHLORIDE 0.9% 1,000 ML 1000 ML IV (02:30)
[2022-02-20] MEDS: PIPERACILLIN/TAZO 4.5 GM in SODIUM CHLORIDE 0.9% 100 ML IV (02:30)
[2022-02-20] MEDS: KETOROLAC 30 MG/ML VIAL 15 MG IV (05:26)
[2022-02-20] MEDS: SODIUM CHLORIDE 0.9% 1,000 ML 125 ML IV ×2 (05:26→23:46)
--- NOTE | 2022-02-20 06:13 | PC.NURSE ---
[id number] Patient admitted from ER, oriented to her room. Family member @ bedside attentive to patient's needs. C/O pain with movement was about to give her Dilaudid. But she reported I can't take any narcotics I will have nausea & vomiting. Dr. Rodriguez notified order to medicated her with Toradol 15 mg. IVP every 6 hrs. PRN. Will cont. POC & monitor.
--- NOTE | 2022-02-20 08:52 | P.HP_ITS ---
History of Present Illness History of Present Illness Date Patient Seen: 02/20/22 Time Patient Seen: 08:56 Chief complaint: abd. pain Narrative: 41-year-old woman with a history of biliary colic who has been told that she needs her gallbladder removed previously presented to the emergency room last night with right upper quadrant pain. Associated nausea and bloating. Evaluation includes a CT abdomen pelvis as well as abdominal ultrasound which demonstrate multiple gallstones and a stone lodged within the neck of the gallbladder, and lizbeth cholecystic fluid. The common bile duct is mildly dilated at 1.2cm, however total bilirubin is normal at 1.0 as well as unremarkable LFTs and lipase. No history of prior abdominal surgery. No anticoagulation. No anesthetic issues with previous surgery. Active smoker. No bleeding disorders. Relevant perioperative history 1. Hypertension 2. Active tobacco use Patient History Medical History Kidney stones Surgical History No pertinent past surgical history Family & Social History Social History: household members significant other Prior Living Arrangements House Safety & Behavioral: Feels Safe in Current Yes Environment Been Physically Hurt or No Threatened By a Person Tobacco & Substance use: Smoking Status Current every day smoker alcohol intake frequency 0-2 drinks per day Substance Use Type does not use Meds Home Medications and Allergies Home Medications Medication Instructions Recorded Confirmed Type hydrocodone 5 mg-acetaminophen 325 1 tab PO Q6H PRN pain #10 tabs 06/20/19 Rx mg tablet ondansetron 4 mg disintegrating 4 mg PO Q8H PRN nausea and 06/20/19 Rx tablet vomiting #10 tabs tamsulosin 0.4 mg capsule (Flomax) 0.4 mg PO DAILY #30 caps 06/20/19 Rx cephalexin 500 mg capsule 500 mg PO BID 7 days #14 caps 02/18/22 02/20/22 Rx ketorolac 10 mg tablet 10 mg PO Q6H PRN pain #14 tabs 02/18/22 02/20/22 Rx ondansetron 4 mg disintegrating 4 mg PO TID-QID PRN nausea and 02/18/22 02/20/22 Rx tablet vomiting #10 tabs Allergies Allergy/AdvReac Type Severity Reaction Status Date / Time narcotics AdvReac Intermediate Vomiting Uncoded 02/20/22 07:00 Exam Vital Signs (past 8 hours): - 02/20/22 05:15 02/20/22 08:34 Temperature 97.1 F L 98.2 F Pulse Rate 90 83 Respiratory Rate 16 18 Blood Pressure 174/97 H 137/82 Pulse Oximetry 98 97 Oxygen Flow Rate 0 0 Oxygen Delivery Method Room Air Oxygen Flow Rate 0 Narrative Exam Narrative: General adult woman alert oriented no acute distress Chest nonlabored respiration Abdomen tender right upper quadrant. No peritonitis Objective Labs Result Diagrams: 02/19/22 23:30 02/19/22 23:30 Labs: Laboratory Results - last 24 hr 02/19/22 02/19/22 23:30 23:30 WBC 14.0 H RBC 4.30 Hgb 12.4 Hct 37.2 MCV 86.7 MCH 28.9 MCHC 33.4 RDW 14.4 Plt Count 210 Neut % (Auto) 89.9 H Lymph % (Auto) 6.0 L [place] % (Auto) 2.8 L Eos % (Auto) 1.2 L Baso % (Auto) 0.1 Neut # (Auto) 75422 H Lymph # (Auto) 800 L [place] # (Auto) 400 Eos # (Auto) 200 Baso # (Auto) 0 Sodium 134 L Potassium 4.0 Chloride 107 Carbon Dioxide 20 L BUN 10 Creatinine 0.92 Estimated GFR > 60 BUN/Creatinine Ratio 10.9 Glucose 101 H Calcium 9.4 Total Bilirubin 1.0 AST 29 ALT 30 Alkaline Phosphatase 56 Total Protein 6.8 Albumin 3.7 Globulin 3.1 Albumin/Globulin Ratio 1.2 Lipase 36 Assessment & Plan Assessment and plan (1) Cholecystitis, acute: Status: Acute Assessment & Plan narrative: 41-year-old woman with symptoms, laboratory studies and radiographic findings consistent with acute cholecystitis. CT abdomen pelvis reviewed personally demonstrates stones and a stone lodged within the neck of the gallbladder. Discussed management options and I recommended that we proceed with a lapar oscopic cholecystectomy. There is no operative time available today. Will plan for surgery tomorrow 01/25. -low-fat diet -Zosyn. -NPO after midnight Time Spent With Patient Critical Care time: I spent a total of [] minutes of critical care time on this patient's care today; this time is exclusive of procedural time.
[2022-02-20] MEDS: PIPERACILLIN/TAZO 3.375 GM in SODIUM CHLORIDE 0.9% 100 ML IV ×2 (09:18→16:50)
[2022-02-20] MEDS: HYDROCODONE/ACET 5/325 TABLET 1 TAB PO (09:18)
--- NOTE | 2022-02-20 10:53 | CM.DANOTE ---
DCP: Case received, EMR reviewed and met with patient. Friend, Patrice Patrick, was at bedside. Introduced self and role. Was able to obtain some information regarding patient's baseline activity level. DCP assessment completed with information currently available. Patient is a 41 year old female who admitted early this morning to the care of the hospitalist/surgical team. PCP: Patient can't remember the name, is a provider in [place]. Payer: confirmed: [employer]. Patient came to the hospital via private vehicle secondary to having worsening abdominal pain which was in her epigastrium area, and radiating to her back. According to notes, patient remembers having some issues with her gallbladder before, but she assumed it was related to COVID. Patient was diagnosed with acute cholelithiasis. Patient is scheduled for surgery, but due to time and availability of surgeries, will be tomorrow. Met with patient in her room. Her significant, Patrice was in the room. Patient spoke little, yes or no answers. Confirmed that she resides in the [place] area with significant other. She is independent at her baseline. Asked her if she had a primary care provider. She stated she does, but can't remember the name. P: DCP to continue to follow. Was informed by surgeon, that surgery is scheduled for tomorrow at approximately 1300. Plan is home when stable. Hanna Ortiz RN/Roll Wrapper Discharge Planning/Care Management CM Discharge Assessment Start: 02/20/22 10:52 Freq: Status: Active Protocol: Document 02/20/22 10:52 (Rec: 02/20/22 10:53 [id number]) Discharge Planning Assessment Assigned Looseleaf Binder Coverer Hanna Ortiz RN/Roll Wrapper Advance Directives? No History Provided By Patient,Medical Record Prior Living Arrangements House Household Members significant other Type of transporation used prior to Drives own vehicle admit Independent with ADL's Yes Is patient alert and oriented? Yes Caregiver for Another No Barriers to Discharge No Discharge Plan Home Transportation Arrangement Friend Referrals Initiated None needed Whiteboard Updated in Patient Room with Yes name and ext. # of Looseleaf Binder Coverer Review Status In Process Next Review Type Continued Stay Review
[2022-02-21] VITALS (20 sets, daily range): BP systolic 122–185; BP diastolic 80–109; PULSE 66–85; RESP 15–29; TEMP 35.6–36.8; O2SAT 92–99; BMI 31.5
--- NOTE | 2022-02-21 | PATH_ITS ---
[facility] Accession Number: [id number] . 01 Material submitted: . gallbladder - GALLBLADDER . 01 Clinical history: . ABD PAIN . 01 Diagnosis: Gallbladder, Cholecystectomy: Gallbladder with cholelithiasis. One benign cystic duct lymph node (0). MRV 02/25/2022 1708 Local . 01 Electronically signed: . Cheli York MD, Pathologist NPI- [id number] . 01 Gross description: . Received in formalin, labeled with the patient's name and gallbladder, is an intact gallbladder measuring 13,2 x 5,4 x 3,7 cm. The serosa is colindres-hewitt, smooth, and glistening. The hepatic surface is rough and unremarkable. The cystic duct is received closed with a clamp and is inked blue. A single pericystic duct lymph node candidate is identified measuring 1.4 cm in greatest dimension. Opening the specimen reveals the lumen to be filled with a moderate amount of clear, viscous fluid as well as four calculi, three of which are hewitt and faceted and measure up to 0.8 cm in greatest dimension. The largest (2.0 cm) is hewitt, roughened, and obstructing the cystic duct. The mucosa is hewitt and trabecular with no polyps, lesions or discoloration identified. The valdez average 0.2 cm in thickness. Pre [employer] Teacher sections to include the cystic duct margin, one-half of the lymph node candidate, and full-thickness sections are submitted in cassette A1. ([id number]) /Harpreet 02/25/2022 1159 Local . 01 Pathologist provided ICD-10: K80.70 . 01 CPT . 570306 Specimen Comment: A courtesy copy of this report has been sent to [phone] Performed at: 01 [facility] [address], [place], [place] [id number] MD Brendan Butcher MD Phone: [phone]
[2022-02-21] MEDS: PIPERACILLIN/TAZO 3.375 GM in SODIUM CHLORIDE 0.9% 100 ML IV ×2 (00:29→08:33)
[2022-02-21] MEDS: SODIUM CHLORIDE 0.9% 1,000 ML 125 ML IV (08:33)
[2022-02-21 08:35] LABS: COVID19 -Nasal RAPID Negative (Negative)
[2022-02-21] MEDS: LACTATED RINGERS 1,000 ML 42 ML IV ×2 (10:58→14:08)
--- NOTE | 2022-02-21 11:10 | PM.PREOP ---
Pre-operative Note Interval Note History & Physical reviewed/Exam performed by Physician: Yes Changes to H&P: No
--- NOTE | 2022-02-21 11:15 | P.OP_ITS ---
Operative Date/Time/Diagnoses Date of procedure: 02/21/22 Time of procedure: 11:15 Pre-op diagnosis: Acute cholecystitis Post-op diagnosis: same Procedure & Clinicians Procedure: Laparoscopic cholecystectomy Same procedure as scheduled: Yes Indications: Symptoms and radiographic findings consistent with acute cholecystitis Surgeon: Darek Anderson Click Yes if Unassisted: Yes Anesthesia Type: General Operative Notes Findings: Hydroptic gallbladder. >200 ml of fluid aspirated from gallbladder. Large stone impacted in neck of gallbladder. Specimen(s): other (Gallbladder) Estimated Blood Loss (mL): 50 Procedure in detail: The patient was placed supine on the table and bilateral lower extremity c ompression devices were applied. Anesthesia was induced they were intubated with an endotracheal tube and received 2g of Ancef. A time-out was performed. They were prepped and draped in sterile fashion. An infraumbilical incision was made, the umbilical stalk was elevated and the fascia was sharply incised entering the abdomen atraumatically. A blunt tip 12mm balloon trocar was then inserted, pneumoperitoneum was established and inspection of the abdomen demonstrated no evidence of injury. They were placed head up and right side up and then a 11 mm port was placed high in the epigastrium and two 5mm in the right upper quadrant. The gallbladder was hydropic and aspirated with needle for decompression. The gallbladder was grasped by the fundus and retracted over the liver and retracted laterally by the infundibulum. Using electrocautery the lateral plane between the gallbladder and the liver was opened towards the fundus. The gallbladder was then retracted laterally and the medial plane was developed in the same manner. With the gallbladder mobilized the bottom of the cystic plate was visualized. There was a large stone impacted within the neck of the gallbladder. The hepatocystic triangle was meticulosly skeletonized using hook electrocautery of all fat and fibrous tissue from both the front and the back. Only two structures were then clearly seen entering the gallbladder the cystic duct and the cystic artery. With the critical view of safety fully established the cystic duct was clipped twice proximally and once distally using the 10 mm weck hemo clip applied under direct visualization and then sharply divided. The cystic artery was divided in the same fashion. The gallbladder was removed from the liver bed using electro cautery. The liver bed was then i nspected for hemostasis and this was achieved. The abdomen was irrigated with sterile saline and inspection was made that showed the clips in good position. The specimen was removed using Endo-Catch. The abdomen was desufflated. The umbilical fascia was closed with 0 Vicryl in a [id number] fashion under direct visualization. Skin incisions were irrigated and closed with 4-0 Monocryl. 30 ml of 0.25% bupivacaine was infiltrated into the subcutaneous tissue of the incisions. The wounds were sealed with Dermabond. Patient emerged from anesthesia was extubated and transferred to recovery in stable condition. The sponge and instrument count at the end of the operation was correct. Complications: none Post-operative Condition: stable Disposition: Acute Care
--- NOTE | 2022-02-21 12:52 | SUR.OPER ---
Supine on padded OR bed, head on pillow, safety belt at thigh, left arm padded and tucked at side. Right arm secured on padded arm board <90 degrees abduction. Legs uncrossed. Padded footboard in place. Tape over blanket to secure lower legs.
[2022-02-21] MEDS: LIDOCAINE 1% W/EPI 20 ML INJ (12:59)
[2022-02-21] MEDS: fentaNYL 100 MCG/2 ML INJ IV ×3 (14:01→14:47)
[2022-02-21] MEDS: ONDANSETRON 4 MG/2 ML INJ IV (14:02)
[2022-02-21] MEDS: HYDROMORPHONE 2 MG INJ IV ×3 (14:24→15:00)
[2022-02-21] MEDS: OXYCODONE/ACETAMINOPHEN 5/325 TABLET 1 TAB PO (14:47)
--- NOTE | 2022-02-21 18:29 | PC.NURSE ---
patient was able to tolerated general diet. dc instruction to patient and significant other.
== END 2022-02-21 18:20 | disposition home or self-care (01) ==
LOC: ED 02-20 04:26 → AC 02-20 08:16
PROVIDERS: Surgery; Admitting Provider Surgery; Emergency Provider Emergency Medicine; Referring Provider Emergency Medicine; Visit Provider Surgery
PROC: 0FT44ZZ Resection of Gallbladder, Percutaneous Endoscopic Approach (ICD-10-PCS; CPT 47562; principal; 2022-02-21 12:00)
DX: K80.00 Calculus of gallbladder with acute cholecystitis without obstruction (principal); F17.210 Nicotine dependence, cigarettes, uncomplicated; I10 Essential (primary) hypertension; Z20.822 Contact with and (suspected) exposure to COVID-19; K82.1 Hydrops of gallbladder
CPT/HCPCS: 47562; 36415; 71260; 74177; 76705; 80053; 81025; 83690; 85025; 87635; 96361; 96365; 96366; 96375; 96376; 99219; 99284; C9803; G0378; J1100; J1170; J1885; J2250; J2405; J2543; J2704; J3010; Q9967

== ENCOUNTER 2022-09-10 20:09 | Emergency (ER) | payer OTHER, MEDICAID, SELFPAY ==
[2022-02-20 05:15] VITALS: BMI 31.5
[2022-09-10] VITALS (14 sets, daily range): BP systolic 187–233; BP diastolic 99–127; PULSE 68–82; RESP 18–24; TEMP 35.5; O2SAT 95–99; BMI 31.5
--- NOTE | 2022-09-10 22:02 | ED_ITS ---
HPI - Extremity Problem General Chief complaint: Extremity Problem,Nontraumatic Stated complaint: Lt. arm not working Time Seen by Provider: 09/10/22 22:02 Source: patient Mode of arrival: Ambulatory Limitations: no limitations History of Present Illness HPI Narrative: This is a 41-year-old female who presents with several days at least 3 or 4 of her left arm not working right. She states she can lifted above her head but it is hard for her to maneuver it properly. 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 She had does not appreciate numbness or tingling. She denies headache, she denies vision changes. No changes to speech, no numbness tingling or weakness of her other extremities. Patient denies any chest pain or shortness of breath. No nausea or vomiting. She notes she would diarrhea yesterday a couple times but no other GI issues. Patient has not had any blood pressure medication at least 5 or 6 months she states she was on lisinopril. She does not recall who her primary care physician was but states she has not been able to get a hold of that to refill her medication. She denies any other prior prescription medications. She states she is had her gallbladder out. She does smoke daily, she states occasional alcohol, she denies IV or injectable drugs. Occasional THC. She is accompanied by her significant other. Related Data Previous Rx's Medication Instructions Recorded ondansetron 4 mg disintegrating 4 mg PO Q8H PRN nausea and 06/20/19 tablet vomiting #10 tabs tamsulosin 0.4 mg capsule (Flomax) 0.4 mg PO DAILY #30 caps 06/20/19 ondansetron 4 mg disintegrating 4 mg PO TID-QID PRN nausea and 02/18/22 tablet vomiting #10 tabs acetaminophen 325 mg capsule 650 mg PO QID PRN pain #60 caps 02/21/22 (Tylenol) ibuprofen 200 mg tablet 400 mg PO Q6H #60 tabs 02/21/22 ondansetron HCl 4 mg tablet 4 mg PO Q6H PRN nausea and 02/21/22 vomiting #30 tabs oxycodone 5 mg tablet 5 mg PO Q6H PRN pain #20 tabs 02/21/22 Allergies Allergy/AdvReac Type Severity Reaction Status Date / Time narcotics AdvReac Mild Vomiting Uncoded 02/21/22 08:35 Review of Systems Review of Systems ROS Unobtainable: All systems reviewed & are unremarkable except as noted in HPI and below Patient History Medical History (Updated 09/10/22 @ 22:22 by Lori Parks DO) Kidney stones Surgical History No pertinent past surgical history Social History household members: significant other Smoking Status: Current every day smoker Smoking Status: Current every day smoker tobacco type: cigarettes alcohol intake frequency: 0-2 drinks per day Substance Use Type: does not use Exam Narrative Exam Narrative: GEN: well nourished, well appearing female, alert and oriented x 3, patient appears to be in mild distress. HEENT: Atraumatic, pupils are equal round reactive to light, extraocular movements are intact, nares are clear, TMs are clear with no fluid, there is no conjunctival pallor. Throat is clear without any exudates, erythema, tonsillar enlargement or uvular deviation, no facial droop. HEART: Regular rate and rhythm without murmur, clicks, rubs. 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 Patient does not have any bony tenderness of the shoulder, she actually has full range of motion of the shoulder as well. NEURO:CN 2-12 intact, sensation normal, reflexes difficult to elicit bilaterally. finger nose finger test normal, heel menendez test normal Initial Vital Signs Initial Vital Signs: Vital Signs Temperature 96 F L 09/10/22 20:18 Pulse Rate 82 09/10/22 20:18 Respiratory Rate 18 09/10/22 20:18 Blood Pressure 233/127 H 09/10/22 20:18 Pulse Oximetry 95 09/10/22 20:18 Oxygen Delivery Method 09/10/22 20:18 Scores NIH Stroke Scale Level of Conciousness: Alert, keenly responsive Ask month/age: Answers both questions correctly. Open/close eyes, close hand: Performs both tasks correctly Best gaze horizontal: Normal Visual carrasco: No visual loss Facial palsy: Normal symetrical movement Left arm drift: Drifts down, not to bed Right arm drift: No drift for full 10 sec Left leg drift: No drift for full 5 sec Right leg drift: No drift for full 5 sec Limb ataxia: Absent Sensory on face/arms/legs: Normal, no sensory loss Best language: No aphasia, normal Dysarthria: Normal Extinction or inattention: No abnormality Total NIH Stroke scale score: 1 Course Orders Ordered: ED Orders 09/10/22 21:15 Complete Blood Count AUTO DIFF Stat Comprehensive Metabolic Panel Stat Ethanol (ETOH) Stat Partial Thromboplastin Time Stat Prothrombin Time INR Stat Troponin & CK Cardiac Panel Stat 09/10/22 22:15 EKG-12 Lead Stat 09/10/22 22:16 CT angio head and neck Stat 09/10/22 22:27 Urine Culture Stat Urine Drug Screen, Rapid Stat Urine Microscopic Stat 09/10/22 22:35 COVID19 -Nasal RAPID/Pre-Proc Stat Discontinued Medications Aspirin (Aspirin 81 Mg Chew Tab) 324 mg PO NOW ONE Stop: 09/11/22 00:12 Last Admin: 09/11/22 00:19 Dose: 324 mg Documented By: RB Sodium Chloride (Normal Saline 0.9%) 1,000 mls @ 150 mls/hr IV CONT BRIGHT Last Admin: 09/10/22 22:24 Dose: 150 mls/hr Documented By: AP Lisinopril (Lisinopril 10 Mg Tablet) 10 mg PO NOW ONE Stop: 09/10/22 23:39 Last Admin: 09/10/22 23:47 Dose: 10 mg Documented By: RB Consultations Consultation #1: Telestroke Dr. Herminio Kang neurology: Patient she does recommend to get an MR with and without contrast to evaluate normally for stroke but also for other causes. She would recommend an 81 mg aspirin daily at this point. She would also recommend typical labs and stroke workup. She does recommend asking little bit more specifically to find out patient is using methamphetamines as this would make possible cardiac source more likely. If patient's workup is negative she recommends aspirin 81 mg daily and follow-up for possible peripheral versus cervical cause of her symptoms. Time: 00:04 Vital Signs Vital signs: Vital Signs - 8 hr 09/10/22 20:18 09/10/22 21:47 09/10/22 21:10 Temperature 96 F L Pulse Rate 82 81 Pulse Rate [Left] 75 Respiratory Rate 18 20 Blood Pressure 233/127 H Pulse Oximetry 95 98 Oxygen Delivery Method Room Air 09/10/22 21:11 09/10/22 21:11 09/10/22 21:30 Temperature Pulse Rate 77 Pulse Rate [Left] Respiratory Rate 24 Blood Pressure 223/124 H 187/99 H Pulse Oximetry 98 Oxygen Delivery Method 09/10/22 21:30 09/10/22 21:41 09/10/22 21:41 Temperature Pulse Rate 73 74 Pulse Rate [Left] Respiratory Rate 22 22 Blood Pressure 215/108 H Pulse Oximetry 99 98 Oxygen Delivery Method 09/10/22 22:00 09/10/22 22:00 09/10/22 22:30 Temperature Pulse Rate 69 75 Pulse Rate [Left] Respiratory Rate 21 24 Blood Pressure 223/107 H Pulse Oximetry 98 97 Oxygen Delivery Method 09/10/22 22:31 09/10/22 22:31 09/10/22 23:47 Temperature Pulse Rate 74 82 Pulse Rate [Left] Respiratory Rate Blood Pressure 206/117 H 228/117 H Pulse Oximetry 97 Oxygen Delivery Method 09/10/22 23:00 09/10/22 23:30 09/10/22 23:39 Temperature Pulse Rate 68 75 82 Pulse Rate [Left] Respiratory Rate 21 19 21 Blood Pressure Pulse Oximetry 99 99 99 Oxygen Delivery Method 09/10/22 23:39 09/10/22 23:50 09/10/22 23:50 Temperature Pulse Rate 81 Pulse Rate [Left] Respiratory Rate 18 Blood Pressure 228/117 H 201/103 H Pulse Oximetry 98 Oxygen Delivery Method 09/11/22 00:00 09/11/22 00:06 09/11/22 00:06 Temperature Pulse Rate 78 75 Pulse Rate [Left] Respiratory Rate Blood Pressure 203/107 H Pulse Oximetry 98 98 Oxygen Delivery Method 09/11/22 00:10 09/11/22 00:10 09/11/22 00:21 Temperature Pulse Rate 74 78 Pulse Rate [Left] Respiratory Rate Blood Pressure 201/108 H Pulse Oximetry 99 98 Oxygen Delivery Method 09/11/22 00:21 Temperature Pulse Rate Pulse Rate [Left] Respiratory Rate Blood Pressure 201/100 H Pulse Oximetry Oxygen Delivery Method MDM - Extremity (Nontraumatic) Lab Data 09/10/22 21:15 09/10/22 21:15 Labs: Lab Results 09/10/22 09/10/22 09/10/22 Range/Units 21:15 21:15 21:15 WBC 10.6 (4.5-11.0) X10^3/uL RBC 5.18 (4.0-5.2) X10^6/uL Hgb 14.8 (12.0-16.0) g/dL Hct 43.6 (36-46) % MCV 84.2 (80-100) fL MCH 28.6 (26-34) PG MCHC 34.0 (30-36) % RDW 14.8 (11.6-14.8) % Plt Count 298 (150-400) X10^3/uL Neut % (Auto) 58.9 (50-75) % Lymph % (Auto) 31.5 (25-40) % [place] % (Auto) 6.1 (3-14) % Eos % (Auto) 3.1 (2-4) % Baso % (Auto) 0.4 (0-2) % Neut # (Auto) 6200 (8679-9599) /uL Lymph # (Auto) 3300 (2917-4100) /uL [place] # (Auto) 600 (0-900) /uL Eos # (Auto) 300 (0-450) /uL Baso # (Auto) 0 (0-100) /uL PT 11.5 (10.1-12.7) SECONDS INR 1.0 (0.9-1.3) APTT 33 (26-36) SECONDS Sodium 138 (137-145) mmol/L Potassium 4.1 (3.4-5.1) mmol/L Chloride 104 (98-107) mmol/L Carbon Dioxide 25 (22-32) mmol/L BUN 17 (7-17) mg/dL Creatinine 0.98 (0.52-1.04) mg/dL Estimated GFR > 60 (>60) mL/min BUN/Creatinine Ratio 17.3 (6-22) Glucose 115 H (70-100) mg/dL Calcium 10.4 H (8.4-10.2) mg/dL Total Bilirubin 0.3 (0.2-1.3) mg/dL AST 31 (14-36) IU/L ALT 33 (<35) IU/L Alkaline Phosphatase 75 (38-126) U/L Total Creatine Kinase 118 (30-135) U/L CK-MB (CK-2) 2.74 H (<2.37) ng/mL CK-MB (CK-2) Rel Index 2.3 (1.5-5.0) % Troponin I < 0.012 (0.01-0.034) ng/mL Total Protein 7.2 (6.3-8.2) g/dL Albumin 4.0 (3.5-5.0) g/dL Globulin 3.2 (1.7-4.1) g/dL Albumin/Globulin Ratio 1.3 (1.0-2.8) Urine RBC (0-5/HPF) Urine WBC (0-5/HPF) Ur Squamous Epith Cells (0-5/HPF) Amorphous Sediment Urine Bacteria (None) Ur Culture Indicated? U Opiates 300ng/mL cut (Negative) Ur Oxycodone Screen (Negative) Urine Methadone Screen (Negative) Ur Barbiturates Screen (Negative) U Tricyclic Antidepress (Negative) Ur Phencyclidine Scrn (Negative) Ur Amphetamines Screen (Negative) U Methamphetamines Scrn (Negative) Ur MDMA Scrn (Ecstasy) (Negative) U Benzodiazepines Scrn (Negative) Urine Cocaine Screen (Negative) U Marijuana (THC) Screen (Negative) Ethyl Alcohol < 10 ( - 10) mg/dL SARS-CoV-2 (PCR) (Negative) 09/10/22 09/10/22 09/10/22 Range/Units 22:27 22:27 22:35 WBC (4.5-11.0) X10^3/uL RBC (4.0-5.2) X10^6/uL Hgb (12.0-16.0) g/dL Hct (36-46) % MCV (80-100) fL MCH (26-34) PG MCHC (30-36) % RDW (11.6-14.8) % Plt Count (150-400) X10^3/uL Neut % (Auto) (50-75) % Lymph % (Auto) (25-40) % [place] % (Auto) (3-14) % Eos % (Auto) (2-4) % Baso % (Auto) (0-2) % Neut # (Auto) (6144-4339) /uL Lymph # (Auto) (7361-2324) /uL [place] # (Auto) (0-900) /uL Eos # (Auto) (0-450) /uL Baso # (Auto) (0-100) /uL PT (10.1-12.7) SECONDS INR (0.9-1.3) APTT (26-36) SECONDS Sodium (137-145) mmol/L Potassium (3.4-5.1) mmol/L Chloride (98-107) mmol/L Carbon Dioxide (22-32) mmol/L BUN (7-17) mg/dL Creatinine (0.52-1.04) mg/dL Estimated GFR (>60) mL/min BUN/Creatinine Ratio (6-22) Glucose (70-100) mg/dL Calcium (8.4-10.2) mg/dL Total Bilirubin (0.2-1.3) mg/dL AST (14-36) IU/L ALT (<35) IU/L Alkaline Phosphatase (38-126) U/L Total Creatine Kinase (30-135) U/L CK-MB (CK-2) (<2.37) ng/mL CK-MB (CK-2) Rel Index (1.5-5.0) % Troponin I (0.01-0.034) ng/mL Total Protein (6.3-8.2) g/dL Albumin (3.5-5.0) g/dL Globulin (1.7-4.1) g/dL Albumin/Globulin Ratio (1.0-2.8) Urine RBC 1-5/hpf (0-5/HPF) Urine WBC 10-30/hpf H (0-5/HPF) Ur Squamous Epith Cells 1-5 /hpf (0-5/HPF) Amorphous Sediment 1+ Urine Bacteria Many (>30) H (None) Ur Culture Indicated? Specimen cultured U Opiates 300ng/mL cut Negative (Negative) Ur Oxycodone Screen Negative (Negative) Urine Methadone Screen Negative (Negative) Ur Barbiturates Screen Negative (Negative) U Tricyclic Antidepress Negative (Negative) Ur Phencyclidine Scrn Negative (Negative) Ur Amphetamines Screen Negative (Negative) U Methamphetamines Scrn Positive H (Negative) Ur MDMA Scrn (Ecstasy) Negative (Negative) U Benzodiazepines Scrn Negative (Negative) Urine Cocaine Screen Negative (Negative) U Marijuana (THC) Screen Negative (Negative) Ethyl Alcohol ( - 10) mg/dL SARS-CoV-2 (PCR) Negative (Negative) Point of Care Testing Test Results Negative Glucose POC 115 Urine Dip Bedside Urine Glucose Negative Bedside Urine Bilirubin - Negative Bedside Urine Ketone - Negative Urine Specific [place] 1.015 Bedside Urine Occult Blood - Negative Bedside Urine pH 6.0 Bedside Urine Protein - Negative Bedside Urine Urobilinogen - Negative Bedside Urine Nitrite + Positive Bedside Urine Leukocytes - Negative Esterase Imaging Data CTA - brain/neck: Radiologist's Impression: [address] [address] [address] Scan Report Signed Patient: Betsy Stinson MR#: [id number] : 1980 Acct:[id number] Age/Sex: 41 / F Date of Service: 09/10/22 Loc: ED Accession Number: [id number] ?? Procedure: CT angio head and neck Ordering Provider: Lori Parks D.O. PROCEDURE:? CT ANGIO HEAD AND NECK ? INDICATIONS:? left arm weakness for several days, htn ? TECHNIQUE:? Pre-contrast 4.5 mm thick sections acquired from the foramen magnum to the vertex.? After the administration of intravenous contrast, 1 mm thick sections acquired from the aortic arch through the [place].? Post-contrast 4.5 mm thick sections then re- acquired from the foramen magnum to the vertex.? 3-dimensional bhlzqbj-bagpbfuln-es ojection (MIP) and/or volume rendering reformats were acquired of the central intracranial vasculature and neck separately. For radiation dose reduction, the following was used:? automated exposure control, adjustment of mA and/or kV according to patient size.? ? COMPARISON:? None. ? FINDINGS:? Image quality:? Excellent.? ? BRAIN:? CSF spaces:? Ventricles are normal in size and shape.? Basal cisterns are patent.? No extra-axial fluid collections.? ? Brain:? No midline shift.? No intracranial bleeds or masses.? Bland-white matter interface appears intact.? ? Skull and face:? Calvarium and facial bones appear intact, without suspicious lesions.? Orbits appear normal.? ? Sinuses:? Sinuses and mastoids are clear.? 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 ? HEAD CT ANGIOGRAPHY:? Anterior circulation:? Intracranial internal carotid arteries are normal in size and flow.? The flow within the paired anterior cerebral arteries is normal and symmetric.? The flow within the middle cerebral arteries is normal and symmetric.? There is 4 mm aneurysm arising at the right carotid bifurcation posteriorly.? Additionally, there is a questionable very tiny aneurysm arising superiorly from the right A1 segment midportion. ? Posterior circulation:? Visualized portions of the vertebral arteries dem onstrate normal caliber, and join to form a normal appearing basilar artery.? Flow within the posterior cerebral arteries is normal and symmetric.? No aneurysms are seen.? ? NECK CT ANGIOGRAPHY:? Carotid system:? The great vessels demonstrate a conventional anatomy as they arise from the aortic arch.? The origins of the common carotid arteries appear patent.? The common carotid arteries demonstrate normal caliber and courses.? The bifurcation regions are both widely patent.? The internal carotid arteries demonstrate normal calibers and courses.? ? Posterior circulation:? The origins of the vertebral arteries both appear widely patent.? The more superior extracranial portions of both vertebral arteries also demonstrate normal courses and calibers.? They join to form a normal appearing basilar artery.? ? Soft tissues:? Visualized neck soft tissues demonstrate no suspicious abnormalities.? ? Bones:? No suspicious bony lesions.? Visualized cervical spine appears normally aligned.? IMPRESSION:? ? 1. No CT evidence of acute intracranial process. ? 2. 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 ? 3. Normal MR angiogram of the neck.? ? Any quantitative measurements of stenosis were performed using NASCET criteria.? ? ? Dictated by: Brenda Blackman M.D. on 09/10/2022 at 23:03 ? ? Approved by: Brenda Blackman M.D. on 09/10/2022 at 23:20?? ECG Data Attestation EKG: I personally reviewed and interpreted this ECG as follows: Interpretation: NSR, rate of 74, IN 178, QRS 100, qtc 446, no acute ST changes. MDM Narrative Medical decision making narrative: This is a 41-year-old female who presents with several days of left upper extremity weakness she states just feels sort of funny is not numb or tingling but she states it is not quite responding like it should. She can move it thro ugh its full range of motion but has little bit increased difficulty and on NIH exam patient has drift. 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 Patient has not had similar symptoms in the past she denies any pain she has not had any recent falls injuries or other possible traumatic causes. Patient is felt that she is appropriate for stroke workup. Plan for head CT, CT angio labs, EKG. These show small aneurysm on the right, she is also positive for methamphetamines on UDS. Labs are otherwise negative, EKG does not show obvious acute changes. Patient is far outside of window for tPA. ASA 324 mg was ordered. Spoke with neurology, there Telestroke they recommend MR with and without contrast to evaluate for stroke but also MS or other causes, aspirin 81 mg daily verify more clearly if methamphetamines are used as this makes a cardiac source or small vessel occlusion more likely. Spoke with hospitalist, OBDULIA Aparicio who accepts. Spoke with patient reviewing her findings today she does state that she has used amphetamines recently. She states she is trying to stop. She does smoke, she does not wish to stay. we did discuss the risks she expresses understanding and is appropriate for discharge. She needs further workup and evaluation she very politely refuses. Patient is open to having a prescription for her prior dose of lisinopril so this was sent and patient was encouraged to return for workup. Discharge Plan Departure Patient Disposition: Left Against Medical Advice Clinical Impression: Left arm weakness
--- NOTE | 2022-09-10 22:16 | DI.CT.S_ITS ---
PROCEDURE: CT ANGIO HEAD AND NECK INDICATIONS: left arm weakness for several days, htn TECHNIQUE: Pre-contrast 4.5 mm thick sections acquired from the foramen magnum to the vertex. After the administration of intravenous contrast, 1 mm thick sections acquired from the aortic arch through the [place]. Post-contrast 4.5 mm thick sections then re-acquired from the foramen magnum to the vertex. 3-dimensional blcdxad-mjjzugdyg-sqrqkpnnqw (MIP) and/or volume rendering reformats were acquired of the central intracranial vasculature and neck separately. For radiation dose reduction, the following was used: automated exposure control, adjustment of mA and/or kV according to patient size. COMPARISON: None. FINDINGS: Image quality: Excellent. BRAIN: CSF spaces: Ventricles are normal in size and shape. Basal cisterns are patent. No extra-axial fluid collections. Brain: No midline shift. No intracranial bleeds or masses. Bland-white matter interface appears intact. Skull and face: Calvarium and facial bones appear intact, without suspicious lesions. Orbits appear normal. Sinuses: Sinuses and mastoids are clear. 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 HEAD CT ANGIOGRAPHY: Anterior circulation: Intracranial internal carotid arteries are normal in size and flow. The flow within the paired anterior cerebral arteries is normal and symmetric. The flow within the middle cerebral arteries is normal and symmetric. There is 4 mm aneurysm arising at the right carotid bifurcation posteriorly. Additionally, there is a questionable very tiny aneurysm arising superiorly from the right A1 segment midportion. Posterior circulation: Visualized portions of the vertebral arteries demonstrate normal caliber, and join to form a normal appearing basilar artery. Flow within the posterior cerebral arteries is normal and symmetric. No aneurysms are seen. NECK CT ANGIOGRAPHY: Carotid system: The great vessels demonstrate a conventional anatomy as they arise from the aortic arch. The origins of the common carotid arteries appear patent. The common carotid arteries demonstrate normal caliber and courses. The bifurcation regions are both widely patent. The internal carotid arteries demonstrate normal calibers and courses. Posterior circulation: The origins of the vertebral arteries both appear widely patent. The more superior extracranial portions of both vertebral arteries also demonstrate normal courses and calibers. They join to form a normal appearing basilar artery. Soft tissues: Visualized neck soft tissues demonstrate no suspicious abnormalities. Bones: No suspicious bony lesions. Visualized cervical spine appears normally aligned. IMPRESSION: 1. No CT evidence of acute intracranial process. 2. 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 3. Normal MR angiogram of the neck. Any quantitative measurements of stenosis were performed using NASCET criteria. Dictated by: Brenda Blackman M.D. on 09/10/2022 at 23:03 Approved by: Brenda Blackman M.D. on 09/10/2022 at 23:20
[2022-09-10] MEDS: SODIUM CHLORIDE 0.9% 1,000 ML 150 ML IV (22:24)
[2022-09-10 22:33] LABS: Add Manual Diff / Slide Review NO; Basophils Absolute Auto 0 /uL (0-100); Basophils Percent Auto 0.4 % (0-2); Eosinophils Absolute Auto 300 /uL (0-450); Eosinophils Percent Auto 3.1 % (2-4); Hematocrit 43.6 % (36-46); Hemoglobin 14.8 g/dL (12.0-16.0); Lymphocytes Absolute Auto 3300 /uL (1100-4500); Lymphocytes Percent Auto 31.5 % (25-40); Mean Corpuscular Hemoglobin 28.6 PG (26-34); Mean Corpuscular Volume 84.2 fL (80-100); Monocytes Absolute Auto 600 /uL (0-900); Monocytes Percent Auto 6.1 % (3-14); Neutrophils Absolute Auto 6200 /uL (1500-7000); Neutrophils Percent Auto 58.9 % (50-75); Platelet Count 298 X10^3/uL (150-400); Red Blood Cell Count 5.18 X10^6/uL (4.0-5.2); Red Cell Distribution Width 14.8 % (11.6-14.8); White Blood Cell Count 10.6 X10^3/uL (4.5-11.0)
[2022-09-10 22:34] LABS: Prothrombin Time 11.5 SECONDS (10.1-12.7)
[2022-09-10 22:36] LABS: PTT Partial Thromboplastin Tim 33 SECONDS (26-36)
[2022-09-10 22:38] LABS: Alanine Aminotransferase 33 IU/L (<35); Albumin Globulin Ratio 1.3 (1.0-2.8); Alkaline Phosphatase 75 U/L (38-126); Aspartate Aminotransferase 31 IU/L (14-36); BUN Creatinine Ratio 17.3 (6-22); Bilirubin Total 0.3 mg/dL (0.2-1.3); Blood Urea Nitrogen 17 mg/dL (7-17); Calcium 10.4 mg/dL (8.4-10.2); Carbon Dioxide 25 mmol/L (22-32); Chloride 104 mmol/L (98-107); Creatine Kinase 118 U/L (30-135); Estimated Glomerular Filt Rate > 60 mL/min (>60); Globulin 3.2 g/dL (1.7-4.1); Glucose 115 mg/dL (70-100); Potassium 4.1 mmol/L (3.4-5.1); Sodium 138 mmol/L (137-145); Total Protein 7.2 g/dL (6.3-8.2)
[2022-09-10 22:46] LABS: Ur Creatinine Normal (Normal); Ur Specific Gravity Normal (Normal); Urine pH Normal (Normal)
[2022-09-10 22:47] LABS: UR Morphine/Opiate cutoff 300 Negative (Negative); Urine Amphetamines Negative (Negative); Urine Barbiturates Negative (Negative); Urine Benzodiazepines Negative (Negative); Urine Cocaine Negative (Negative); Urine MDMA Negative (Negative); Urine Methadone Negative (Negative); Urine Methamphetamines Positive (Negative); Urine Oxycodone Negative (Negative); Urine Phencyclidine Negative (Negative); Urine Tetrahydrocannabinol Negative (Negative); Urine Tricyclic Antidepressant Negative (Negative)
[2022-09-10 22:49] LABS: Troponin I < 0.012 ng/mL (0.01-0.034)
[2022-09-10 22:53] LABS: CKMB % Relative Index 2.3 % (1.5-5.0); Creatine Kinase MB 2.74 ng/mL (<2.37)
[2022-09-10 22:59] LABS: Amorphous Sediment Urine 1+; RBC Urine 1-5/HPF (0-5/HPF); Squamous Epithelial Cell Urine 1-5 /HPF (0-5/HPF); WBC Urine 10-30/HPF (0-5/HPF)
[2022-09-10 23:00] LABS: Bacteria Urine Many (>30); Culture Indicated Urine Specimen Cultured
[2022-09-10 23:04] LABS: COVID19 -Nasal RAPID Negative (Negative)
[2022-09-10 23:24] LABS: Ethanol (ETOH) < 10 mg/dL; HEMOLYSIS 23 (0-50)
[2022-09-10] MEDS: lisinopriL 10 MG TABLET PO (23:47)
[2022-09-11] VITALS: PULSE 78; O2SAT 98
[2022-09-11 00:06] VITALS: BP 203/107; PULSE 75; O2SAT 98
[2022-09-11 00:10] VITALS: BP 201/108; PULSE 74; O2SAT 99
[2022-09-11] MEDS: ASPIRIN 81 MG CHEW TAB 324 MG PO (00:19)
[2022-09-11 00:21] VITALS: BP 201/100; PULSE 78; O2SAT 98
[2022-09-11 00:30] VITALS: BP 208/109; PULSE 77; O2SAT 97
[2022-09-11 00:40] VITALS: BP 206/116; PULSE 70; O2SAT 97
--- NOTE | 2022-09-14 12:27 | PC.NURSE ---
Pt called stating she didn't have prescriptions. Verified pharmacy w/ pt. Dr. Hurd authorized me to call in prescription for lisinopril 10 mg po daily as prescribed by Dr. Parks. Called in w/o issues.
== END 2022-09-11 00:48 | disposition left against medical advice (07) ==
LOC: ED 09-11 00:23 → AC 09-11 00:35
PROVIDERS: Emergency Provider Emergency Medicine
DX: R53.1 Weakness (principal); I10 Essential (primary) hypertension; Z20.822 Contact with and (suspected) exposure to COVID-19
CPT/HCPCS: 36415; 70496; 70498; 80053; 80305; 80320; 81003; 81015; 81025; 82550; 82553; 82962; 84484; 85025; 85610; 85730; 87077; 87086; 87186; 87635; 93005; 93010; 99284; 99285; C9803; Q9967